=== PATIENT | female | born 1990 | race American Indian/Alaskan Native ===

== ENCOUNTER 2018-04-21 08:27 | Emergency (ER) | payer MEDICAID ==
[2018-04-21 08:33] VITALS: BP 156/98
[2018-04-21 09:33] LABS: Basophils # (Auto) 0.1 K/mm3 (0.0-0.1); Basophils % (Auto) 1.8 % (0.0-1.8); Eosinophils # (Auto) 0.2 K/mm3 (0.0-0.4); Hematocrit 42.1 % (30.3-42.9); Hemoglobin 14.7 gm/dl (10.1-14.3); Lymphocytes # (Auto) 1.1 K/mm3 (1.2-5.4); Lymphocytes % (Auto) 26.5 % (13.4-35.0); Mean Corpuscular HGB Conc 35 % (30-34); Mean Corpuscular Hemoglobin 33 pg (28-32); Mean Corpuscular Volume 94 fl (79-97); Monocytes # (Auto) 0.6 K/mm3 (0.0-0.8); Monocytes % (Auto) 14.2 % (0.0-7.3); Platelet Count 255 K/mm3 (140-440); Red Blood Count 4.49 M/mm3 (3.65-5.03); Red Cell Distribution Width 14.9 % (13.2-15.2)
--- NOTE | 2018-04-21 09:38 | Emergency Department Report ---
ED Female HPI - General Chief complaint: Vaginal Bleeding Stated complaint: VAGINAL BLEEDING Time Seen by Provider: 04/21/18 09:37 Source: patient Mode of arrival: Ambulatory Limitations: No Limitations - History of Present Illness Initial comments: Patient reports that she is having vaginal bleeding in the study 3 days ago. She says she had bilateral tubal ligation and she is not . Denies passing any clots. Denies any urinary frequency or urgency but reports that she feels irritated when she urinates and when she wiped she sees bright red blood and also some spots of blood in the toilet. Bilateral back pain and pelvic pain is 4/10 and crampy. No medication taken. No alleviating or exacerbating factors. Denies any fever or chills. Denies any nausea or vomiting. MD Complaint: vaginal bleeding, other Onset/Timin -: days(s) Radiation: suprapubic, L flank, R flank Severity: mild Severity scale (0 -10): 4 Quality: sharp Consistency: intermittent Improves with: none Worsens with: none Are you Now?: No Last Menstrual Period: 04/03/18 EDC: 01/08/19 Associated Symptoms: vaginal bleeding, abdominal pain, dysuria, hematuria, other (back pain). denies: vaginal discharge, nausea/vomiting, fever/chills, headaches, loss of appetite, rash, seizure, shortness of breath, syncope, weakness - Related Data Sexually active: Yes Previous Rx's Medication Instructions Recorded Last Taken Type Ibuprofen [Motrin] 800 mg PO Q8HR PRN #20 tablet 01/08/16 Unknown Rx Bisacodyl [Dulcolax] 10 mg PO DAILY 1 Days #2 tab 04/21/18 Unknown Rx Ciprofloxacin HCl [Ciprofloxacin 500 mg PO Q12H 7 Days #14 tab 04/21/18 Unknown Rx TAB] Ibuprofen [Motrin 600 MG tab] 600 mg PO Q8H PRN #15 tablet 04/21/18 Unknown Rx Magnesium Citrate [Citrate of 300 ml PO ONCE 1 Days #1 bottle 04/21/18 Unknown Rx Magnesia] Sodium Phosphate,[place]-Dibasic 118 ml RC ONCE 1 Days #1 enema 04/21/18 Unknown Rx [Fleet Enema] Allergies Allergy/AdvReac Type Severity Reaction Status Date / Time Penicillins Allergy Hives Verified 04/21/18 08:29 ED Review of Systems ROS: Stated complaint: VAGINAL BLEEDING Other details as noted in HPI Constitutional: denies: chills, fever ENT: ear pain Respiratory: denies: cough, shortness of breath, SOB with exertion, SOB at rest , stridor, wheezing Cardiovascular: denies: chest pain, palpitations, dyspnea on exertion, edema, syncope, paroxysmal nocturnal dyspnea Endocrine: no symptoms reported Gastrointestinal: abdominal pain. denies: nausea, vomiting, diarrhea, constipation, hematemesis, melena, hematochezia Genitourinary: dysuria, hematuria, abnormal menses. denies: urgency, frequency , discharge, dyspareunia Musculoskeletal: back pain. denies: joint swelling, arthralgia, myalgia Skin: denies: rash, lesions Neurological: denies: headache, weakness ED Past Medical Hx - Past Medical History Previous Medical History?: Yes Hx Asthma: Yes - Surgical History Past Surgical History?: Yes Additional Surgical History: x3. D & C - Family History Family history: hypertension - Social History Smoking Status: Current Every Day Smoker Substance Use Type: None - Medications Home Medications: Home Medications Medication Instructions Recorded Confirmed Last Taken Type Ibuprofen [Motrin] 800 mg PO Q8HR PRN #20 tablet 01/08/16 Unknown Rx Bisacodyl [Dulcolax] 10 mg PO DAILY 1 Days #2 tab 04/21/18 Unknown Rx Ciprofloxacin HCl [Ciprofloxacin 500 mg PO Q12H 7 Days #14 tab 04/21/18 Unknown Rx TAB] Ibuprofen [Motrin 600 MG tab] 600 mg PO Q8H PRN #15 tablet 04/21/18 Unknown Rx Magnesium Citrate [Citrate of 300 ml PO ONCE 1 Days #1 bottle 04/21/18 Unknown Rx Magnesia] Sodium Phosphate,[place]-Dibasic 118 ml RC ONCE 1 Days #1 enema 04/21/18 Unknown Rx [Fleet Enema] ED Physical Exam - General Limitations: No Limitations General appearance: alert, in no apparent distress - Head Head exam: Present: atraumatic, normocephalic, normal inspection - Eye Eye exam: Present: normal appearance, PERRL, EOMI Pupils: Present: normal accommodation - ENT ENT exam: Present: normal exam, normal orophraynx, mucous membranes moist - Neck Neck exam: Present: normal inspection, full ROM. Absent: tenderness, lymphadenopathy - Respiratory Respiratory exam: Present: normal lung sounds bilaterally. Absent: respiratory distress, chest wall tenderness - Cardiovascular Cardiovascular Exam: Present: normal rhythm, tachycardia, normal heart sounds. Absent: systolic murmur, diastolic murmur - GI/Abdominal GI/Abdominal exam: Present: soft, normal bowel sounds. Absent: distended, tenderness, guarding, rebound, rigid, organomegaly, mass, bruit, pulsatile mass , hernia - Extremities Exam Extremities exam: Present: normal inspection, full ROM, normal capillary refill , other (No cce. + 2 pulses in all extremities, no neurovascular compromise). Absent: tenderness, pedal edema, joint swelling, calf tenderness - Back Exam Back exam: Present: normal inspection, other (plates without any difficulties). Absent: full ROM, tenderness, CVA tenderness (R), CVA tenderness (L), muscle spasm, paraspinal tenderness, vertebral tenderness, rash noted - Neurological Exam Neurological exam: Present: alert, oriented X3, normal gait - Psychiatric Psychiatric exam: Present: normal affect, normal mood - Skin Skin exam: Present: warm, dry, intact, normal color. Absent: rash ED Course Vital Signs 04/21/18 04/21/18 08:30 09:15 Temperature 98.5 F Pulse Rate 105 H Respiratory 18 18 Rate Blood Pressure 156/98 O2 Sat by Pulse 100 Oximetry - Reevaluation(s) Reevaluation #1: 04/21/18 10:42 Patient is stable throughout ED course. I discussed with her that her lab results were stable except she has white cells in her urine and moderate blood and since she is having bilateral flank pain and pelvic pain that I will go ahead and order a CT scan of the abdomen and pelvis without contrast to check to make sure she does not have kidney stones. She voiced understanding. test is negative. ED Medical Decision Making - Lab Data Result diagrams: 04/21/18 08:56 Lab Results 04/21/18 04/21/18 04/21/18 Range/Units 07:06 08:51 08:56 WBC 4.2 L (4.5-11.0) K/mm3 RBC 4.49 (3.65-5.03) M/mm3 Hgb 14.7 H (10.1-14.3) gm/dl Hct 42.1 (30.3-42.9) % MCV 94 (79-97) fl MCH 33 H (28-32) pg MCHC 35 H (30-34) % RDW 14.9 (13.2-15.2) % Plt Count 255 (140-440) K/mm3 Lymph % (Auto) 26.5 (13.4-35.0) % [place] % (Auto) 14.2 H (0.0-7.3) % Eos % (Auto) 4.0 (0.0-4.3) % Baso % (Auto) 1.8 (0.0-1.8) % Lymph # 1.1 L (1.2-5.4) K/mm3 [place] # 0.6 (0.0-0.8) K/mm3 Eos # 0.2 (0.0-0.4) K/mm3 Baso # 0.1 (0.0-0.1) K/mm3 Seg Neutrophils % 53.5 (40.0-70.0) % Seg Neutrophils # 2.3 (1.8-7.7) K/mm3 HCG, Quant (0-4) mIU/mL Urine Color Yellow (Yellow) Urine Turbidity Clear (Clear) Urine pH 6.0 (5.0-7.0) Ur Specific [place] 1.016 (1.003-1.030) Urine Protein <15 mg/dl (Negative) mg/dL Urine Glucose (UA) Neg (Negative) mg/dL Urine Ketones Neg (Negative) mg/dL Urine Blood Mod (Negative) Urine Nitrite Neg (Negative) Urine Bilirubin Neg (Negative) Urine Urobilinogen < 2.0 (<2.0) mg/dL Ur Leukocyte Esterase Neg (Negative) Urine WBC (Auto) 10.0 H (0.0-6.0) /HPF Urine RBC (Auto) 6.0 (0.0-6.0) /HPF U Epithel Cells (Auto) 1.0 (0-13.0) /HPF Blood Type O POSITIVE Antibody Screen Negative 04/21/18 Range/Units 08:56 WBC (4.5-11.0) K/mm3 RBC (3.65-5.03) M/mm3 Hgb (10.1-14.3) gm/dl Hct (30.3-42.9) % MCV (79-97) fl MCH (28-32) pg MCHC (30-34) % RDW (13.2-15.2) % Plt Count (140-440) K/mm3 Lymph % (Auto) (13.4-35.0) % [place] % (Auto) (0.0-7.3) % Eos % (Auto) (0.0-4.3) % Baso % (Auto) (0.0-1.8) % Lymph # (1.2-5.4) K/mm3 [place] # (0.0-0.8) K/mm3 Eos # (0.0-0.4) K/mm3 Baso # (0.0-0.1) K/mm3 Seg Neutrophils % (40.0-70.0) % Seg Neutrophils # (1.8-7.7) K/mm3 HCG, Quant < 2 (0-4) mIU/mL Urine Color (Yellow) Urine Turbidity (Clear) Urine pH (5.0-7.0) Ur Specific [place] (1.003-1.030) Urine Protein (Negative) mg/dL Urine Glucose (UA) (Negative) mg/dL Urine Ketones (Negative) mg/dL Urine Blood (Negative) Urine Nitrite (Negative) Urine Bilirubin (Negative) Urine Urobilinogen (<2.0) mg/dL Ur Leukocyte Esterase (Negative) Urine WBC (Auto) (0.0-6.0) /HPF Urine RBC (Auto) (0.0-6.0) /HPF U Epithel Cells (Auto) (0-13.0) /HPF Blood Type Antibody Screen Urine culture sent - Radiology Data Radiology results: report reviewed CT scan of the abdomen and pelvis without contrast done and dictated by radiologist. Report reviewed by myself. See report results below. Patient: EVE BARCENAS MR#: [id number] : 1990 Acct:[id number] Age/Sex: 27 / F ADM Date: 04/21/18 Loc: ED Attending Dr: Ordering Physician: KYLAH SIMS Date of Service: 04/21/18 Procedure(s): CT abdomen pelvis wo con Accession Number(s): [id number] cc: KYLAH SIMS FINAL REPORT EXAM: CT ABDOMEN PELVIS WO CON HISTORY: hematuria, flank pain TECHNIQUE: Axial images were performed from the lung bases to the pubic symphysis. Multiplanar reformats are performed on the acquisition scanner. Comparison: None FINDINGS: Right lower lobe scar. Unremarkable unenhanced liver, spleen, pancreas, gallbladder, bilateral adrenal glands. There are no renal stones. There is no hydronephrosis. Urinary bladder is moderately distended. Tracing the ureters in the retroperitoneum, no stones are identified. There are bilateral tubal interruption clips. Urinary bladder is moderately distended. Normally anteverted uterus with prominent bilateral age-appropriate adnexa. Moderate fecal retention. Normal appearance of the appendix. Nonobstructive bowel pattern. Multiple small mesenteric arcade, retroperitoneal, and inguinal lymph nodes. There are also small lymph nodes in the mesenteric root and portal region as well as along the ventral pancreas. IMPRESSION: No stones identified. No etiology for hematuria identified. No hydronephrosis. Multiple small lymph nodes throughout the mesenteric root and along sachi chains in the retroperitoneum. Recommend correlation with labs and possibly repeat exam with IV contrast. Moderate stool ball in the rectum. Transcribed By: MP Dictated By: DHIRAJ ENGLISH Electronically Authenticated By: DHIRAJ ENGLISH Signed Date/Time: 04/21/181120 DD/ 20 TD/TT: 04/21/18 112 - Medical Decision Making This is a 27-year-old female here reports that she is having and vaginal bleeding when she wipes after urinating and also she saw some blood in the toilet and this was noted last 3 days. She says she had her period that started on the 14 and that it started about 3 days ago. Patient reports that she is having lower back pain with some pelvic pain that comes and goes. She has bilateral tubal ligation. She does not have any fever, nausea or vomiting. I saw and examined patient and her abdominal exam is essentially normal, back exam is normal, patient's CBC with normal values, urinalysis with positive white count and moderate provides but no bacteria or or leukocyte esterase seen. She had CT scan of the abdomen and pelvis without contrast due to moderate blood in her urine. This was dictated by radiologist and myself. CT scan shows moderate stool in her colon with stool in her rectal area, distended bladder and multiple areas of enlarged lymph nodes. I discussed CT findings with patient and also gave her copy. She says she had a Pap smear 1 month ago and it was normal. I thought I refer her back to her primary care which she does have one and I will refer her to my [facility] for follow-up visit. Patient with mesenteric adenitis-referral to gastroenterology and [facility] Asymptomatic pyuria with hematuria-A she will be placed on Cipro which will cover adenitis and pyuria. Positive + urine and moderate blood. Urine culture sent Constipation-patient will be placed on enema and magnesium citrate and I encouraged her to eat food that fine fiber and drink plenty of water. I will also give her Dulcolax tablets 1 day. Lower back pain-better with Motrin 800 mg 1 dose and will discharge home and Motrin Pelvic pain-soft. Patient educated on diets that includes fiber, increase in fluids in her diet, medication, lab results and CT scan results. Referral to [facility] and field artillery cannoneer in 3-5 days and she voiced understanding Back to her primary care physician in 3-5 days. Patient discharged home in stable condition, her vital signs are stable she is afebrile. Pain is better. Discharged home to follow-up with [facility], field artillery cannoneer and her primary care physician in 3-5 days and she voiced understanding. I discussed with her that if her symptoms return to return back to the emergency room and she voiced understanding. She was prescribed Dulcolax tablet 1, ciprofloxacin, Motrin, magnesium citrate and enema. - Differential Diagnosis bowel obstruction, appendicitis, renal calculi, UTI, adenitis, Critical care attestation.: If time is entered above; I have spent that time in minutes in the direct care of this critically ill patient, excluding procedure time. ED Disposition Clinical Impression: Pelvic pain, Pyuria, Mesenteric adenitis Constipation Qualifiers: Constipation type: unspecified constipation type Qualified Code(s): K59.00 - Constipation, unspecified Lower back pain Qualifiers: Chronicity: acute Back pain laterality: bilateral Sciatica presence: without sciatica Qualified Code(s): M54.5 - Low back pain Hematuria Qualifiers: Hematuria type: unspecified type Qualified Code(s): R31.9 - Hematuria, unspecified Disposition: TO HOME OR SELFCARE Is pt being admited?: No Does the pt Need Aspirin: No Condition: Stable Instructions: Constipation (ED), High Fiber Diet (ED), Urinary Tract Infection in Women (ED), Mesenteric Adenitis (ED), Back Pain (ED), Abdominal Pain (ED), Acute Hematuria (ED) Additional Instructions: Please follow up with [facility] and primary care in 3-5 days. Follow up with [facility] in 3-5 days If his symptoms return, please return to the emergency room CR[facility] your CT scan is showing that you have moderate constipation so the steak regime that I discussed with you Increase fluid and fiber in your diet. Prescriptions: Bisacodyl [Dulcolax] 10 mg PO DAILY 1 Days #2 tab Ciprofloxacin HCl [Ciprofloxacin TAB] 500 mg PO Q12H 7 Days #14 tab Ibuprofen [Motrin 600 MG tab] 600 mg PO Q8H PRN #15 tablet PRN Reason: Pain Magnesium Citrate [Citrate of Magnesia] 300 ml PO ONCE 1 Days #1 bottle Sodium Phosphate,[place]-Dibasic [Fleet Enema] 118 ml RC ONCE 1 Days #1 enema Referrals: PRIMARY CAREM[facility] [Primary Care Provider] - 3-5 Days [facility] [Provider Group] - 3-5 Days [facility] [Provider Group] - 3-5 Days Forms: Work/School Release Form(ED)
[2018-04-21 10:20] LABS: Bilirubin,Urine NEG (Negative); Blood,Urine MOD (Negative); Color,Urine Yellow (Yellow); Protein,Urine <15 mg/dL mg/dL (Negative); Urobilinogen,Urine < 2.0 mg/dL (<2.0)
[2018-04-21] MEDS ORDERED: NORCO 7.5/325 PO ONE (10:43)
--- NOTE | 2018-04-21 11:28 | Cat Scan Report ---
FINAL REPORT EXAM: CT ABDOMEN PELVIS WO CON HISTORY: hematuria, flank pain TECHNIQUE: Axial images were performed from the lung bases to the pubic symphysis. Multiplanar reformats are performed on the acquisition scanner. Comparison: None FINDINGS: Right lower lobe scar. Unremarkable unenhanced liver, spleen, pancreas, gallbladder, bilateral adrenal glands. There are no renal stones. There is no hydronephrosis. Urinary bladder is moderately distended. Tracing the ureters in the retroperitoneum, no stones are identified. There are bilateral tubal interruption clips. Urinary bladder is moderately distended. Normally anteverted uterus with prominent bilateral age-appropriate adnexa. Moderate fecal retention. Normal appearance of the appendix. Nonobstructive bowel pattern. Multiple small mesenteric arcade, retroperitoneal, and inguinal lymph nodes. There are also small lymph nodes in the mesenteric root and portal region as well as along the ventral pancreas. IMPRESSION: No stones identified. No etiology for hematuria identified. No hydronephrosis. Multiple small lymph nodes throughout the mesenteric root and along sachi chains in the retroperitoneum. Recommend correlation with labs and possibly repeat exam with IV contrast. Moderate stool ball in the rectum.
== END 2018-04-21 13:39 | disposition home or self-care (01) ==
LOC: ED 08:27
DX: I88.0 Nonspecific mesenteric lymphadenitis (principal); K59.00 Constipation, unspecified; N39.0 Urinary tract infection, site not specified; R31.9 Hematuria, unspecified; J45.909 Unspecified asthma, uncomplicated; F17.200 Nicotine dependence, unspecified, uncomplicated; Z88.0 Allergy status to penicillin
CPT/HCPCS: 36415; 74176; 81001; 84702; 85025; 86850; 86900; 86901; 99284

== ENCOUNTER 2018-05-29 22:17 | Emergency (ER) | payer MEDICAID ==
[2018-05-29] MEDS ORDERED: PROVENTIL IH ONE ×2 (22:35→23:10)
[2018-05-29 22:57] VITALS: BP 147/104
[2018-05-29 23:17] LABS: Hematocrit 41.2 % (30.3-42.9); Hemoglobin 14.3 gm/dl (10.1-14.3); Mean Corpuscular HGB Conc 35 % (30-34); Mean Corpuscular Hemoglobin 33 pg (28-32); Mean Corpuscular Volume 94 fl (79-97); Platelet Count 363 K/mm3 (140-440); Red Blood Count 4.41 M/mm3 (3.65-5.03); Red Cell Distribution Width 13.8 % (13.2-15.2)
[2018-05-29 23:32] LABS: BUN/Creatinine Ratio 9; Blood Urea Nitrogen 6 mg/dL (7-17); Calcium 8.8 mg/dL (8.4-10.2); Hemolysis Index 8
--- NOTE | 2018-05-30 00:40 | XRay Report ---
FINAL REPORT EXAM: XR CHEST ROUTINE 2V HISTORY: cough and AUDRA COMPARISON: CT of the chest from December 2015. FINDINGS:: Frontal and lateral views of the chest obtained. Cardiac silhouette is within normal limits. No focal consolidation or effusion. No pneumothorax. Visualized bony thorax is grossly intact. IMPRESSION:: No acute findings.
[2018-05-30 05:11] LABS: Band Neutrophils # (Manual) 0.1 K/mm3; Basophils % (Manual) 0 % (0.0-1.8); Eosinophils % (Manual) 0 % (0.0-4.3); Myelocytes # (Manual) 0.2 K/mm3; Platelet Estimate Consistent w Auto; Total Cells Counted 100
== END 2018-05-30 00:54 | disposition left against medical advice (07) ==
LOC: ED 22:17
DX: R06.00 Dyspnea, unspecified (principal); Z53.21 Procedure and treatment not carried out due to patient leaving prior to being seen by health care provider
CPT/HCPCS: 36415; 71046; 80048; 84703; 85007; 85025

== ENCOUNTER 2018-06-06 16:45 | Emergency (ER) | payer MEDICAID ==
[2018-06-06 18:20] LABS: Basophils # (Auto) 0.1 K/mm3 (0.0-0.1); Basophils % (Auto) 0.7 % (0.0-1.8); Eosinophils # (Auto) 0.1 K/mm3 (0.0-0.4); Eosinophils % (Auto) 0.5 % (0.0-4.3); Hematocrit 40.7 % (30.3-42.9); Lymphocytes # (Auto) 1.4 K/mm3 (1.2-5.4); Lymphocytes % (Auto) 13.6 % (13.4-35.0); Mean Corpuscular HGB Conc 34 % (30-34); Mean Corpuscular Hemoglobin 32 pg (28-32); Mean Corpuscular Volume 93 fl (79-97); Monocytes # (Auto) 1.2 K/mm3 (0.0-0.8); Monocytes % (Auto) 11.1 % (0.0-7.3); Platelet Count 347 K/mm3 (140-440); Red Blood Count 4.39 M/mm3 (3.65-5.03); Red Cell Distribution Width 13.9 % (13.2-15.2)
--- NOTE | 2018-06-06 18:21 | Emergency Department Report ---
ED Chest Pain HPI - General Chief Complaint: Chest Pain Stated Complaint: CHEST PAIN Time Seen by Provider: 06/06/18 18:09 Source: patient Mode of arrival: Stretcher Limitations: No Limitations - History of Present Illness Initial Comments: 27-year-old female reports to the ED with chest pain, onset 4 hours ago while laying in bed. Patient reports pain is substernal, constant. Denies shortness of breath, nausea, vomiting, diaphoresis. Patient denies leg pain and swelling. She reports cough and nasal congestion. Patient was given aspirin and sublingual nitroglycerin by EMS. Reports relief of her pain. Denies family history of heart disease. Patient reports tobacco and marijuana use. Denies alcohol use. PCP: Family Medicine dane Terrazas MD Complaint: chest pain -: hour(s) (4) Onset: during rest Pain Location: substernal Pain Radiation: none Severity: moderate Severity scale (0 -10): 5 Quality: pressure Consistency: constant Improves With: nitroglycerin Worsens With: nothing Context: recent illness (URI) re: denies: nausea, vomting, diaphoresis, dyspnea Other Symptoms: cough, other (reports dizziness). denies: fever, leg swelling - Related Data Home Medications Medication Instructions Recorded Confirmed Last Taken Prednisone 10 mg PO 05/29/18 Unknown Zithromax Z-NEY 250 mg PO DAILY 05/29/18 05/29/18 Unknown Allergies Allergy/AdvReac Type Severity Reaction Status Date / Time Penicillins Allergy Hives Verified 04/21/18 08:29 Heart Score - HEART Score History: Slightly suspicious EKG: Non-specific Age: < 45 Risk factors: 1-2 risk factors Troponin: < normal limit HEART Score: 2 - Critical Actions Critical Actions: 0-3 pts:0.9-1.7%risk of adverse cardiac event.Candidate for discharge ED Review of Systems ROS: Stated complaint: CHEST PAIN Other details as noted in HPI Comment: All other systems reviewed and negative Constitutional: denies: fever ENT: congestion Respiratory: cough Cardiovascular: chest pain. denies: edema Gastrointestinal: denies: nausea, vomiting Musculoskeletal: other (denies leg pain/ swelling) Neurological: other (reports dizziness) ED Past Medical Hx - Past Medical History Hx Asthma: Yes - Surgical History Additional Surgical History: x3. D & C - Social History Smoking Status: Current Every Day Smoker Substance Use Type: Alcohol, Marijuana - Medications Home Medications: Home Medications Medication Instructions Recorded Confirmed Last Taken Type Prednisone 10 mg PO 05/29/18 Unknown History Zithromax Z-NEY 250 mg PO DAILY 05/29/18 05/29/18 Unknown History ED Physical Exam - General Limitations: No Limitations General appearance: alert, in no apparent distress - Head Head exam: Present: atraumatic, normocephalic - Eye Eye exam: Present: normal appearance - ENT ENT exam: Present: mucous membranes moist - Neck Neck exam: Present: normal inspection - Respiratory Respiratory exam: Present: normal lung sounds bilaterally. Absent: respiratory distress - Cardiovascular Cardiovascular Exam: Present: regular rate, normal rhythm, other (no chest wall tenderness) - GI/Abdominal GI/Abdominal exam: Present: soft. Absent: tenderness - Extremities Exam Extremities exam: Absent: pedal edema, calf tenderness - Neurological Exam Neurological exam: Present: alert, oriented X3 - Psychiatric Psychiatric exam: Present: normal affect, normal mood - Skin Skin exam: Present: warm, dry, intact, normal color. Absent: rash ED Course Vital Signs 06/06/18 06/06/18 06/06/18 17:22 17:30 17:32 Temperature 99.2 F Pulse Rate 110 H 105 H 97 H Respiratory 13 18 18 Rate Blood Pressure 148/94 148/94 O2 Sat by Pulse 100 100 Oximetry 06/06/18 06/06/18 06/06/18 17:43 17:45 18:00 Temperature Pulse Rate 102 H 96 H Respiratory 18 13 22 Rate Blood Pressure 143/102 143/102 O2 Sat by Pulse 100 99 100 Oximetry 06/06/18 06/06/18 06/06/18 18:15 18:30 18:45 Temperature Pulse Rate 87 85 87 Respiratory 14 20 22 Rate Blood Pressure 153/100 155/93 149/95 O2 Sat by Pulse 100 99 Oximetry 06/06/18 06/06/18 06/06/18 19:00 19:15 19:30 Temperature Pulse Rate 78 85 83 Respiratory 24 18 25 H Rate Blood Pressure 145/97 140/93 149/87 O2 Sat by Pulse 98 100 99 Oximetry - Reevaluation(s) Reevaluation #1: 06/06/18 19:50 Patient remains chest pain-free at this time. RYAN score - Ryan Score Age > 65: (0) No Aspirin use within the Past 7 Days: (0) No 3 or more CAD Risk Factors: (0) No 2 or more Angina events in past 24 hrs: (0) No Known CAD with more than 50% Stenosis: (0) No Elevated Cardiac Markers: (0) No ST Deviation Greater than 0.5mm: (0) No RYAN Score: 0 ED Medical Decision Making - Lab Data Result diagrams: 06/06/18 18:09 06/06/18 18:09 - EKG Data EKG shows normal: sinus rhythm, axis (nml), intervals (nml), QRS complexes (nml) , ST-T waves (T wave inv III and aVF) Rate: normal (rate 90) - EKG Data Interpretation: nonspecific ST-T wave kofi - Radiology Data Radiology results: pending, image reviewed interpreted by me: No acute findings - Medical Decision Making 27-year-old female with nonpleuritic chest pain, pressure like in character. Patient low risk for ACS given age, health status, and family history. Chest x- ray and EKG unremarkable, troponin normal. Patient remained chest pain-free at this time. Pt has primary care physician, instructed her to follow up as an outpatient. Patient given return precautions - Differential Diagnosis ACS, pneumonia, pulm edema, chest wall pain Critical care attestation.: If time is entered above; I have spent that time in minutes in the direct care of this critically ill patient, excluding procedure time. ED Disposition Clinical Impression: Chest pain Disposition: DC-01 TO HOME OR SELFCARE Is pt being admited?: No Condition: Stable Instructions: Chest Pain (ED)
[2018-06-06 18:39] LABS: BUN/Creatinine Ratio 13; Blood Urea Nitrogen 9 mg/dL (7-17); Calcium 8.9 mg/dL (8.4-10.2); Hemolysis Index 4
[2018-06-06 20:09] VITALS: BP 137/88
--- NOTE | 2018-06-06 20:14 | XRay Report ---
FINAL REPORT PROCEDURE: XR CHEST 1V AP TECHNIQUE: Chest radiograph anteroposterior view. CPT 70538 HISTORY: chest pain COMPARISON: 05/29/2018 FINDINGS: Heart: Normal. Mediastinum/Vessels: Normal. Lungs/Pleural space: No infiltrate, effusion, or pneumothorax. Bony thorax: No acute osseous abnormality. Life support devices: None. IMPRESSION: No radiographic evidence of acute cardiopulmonary abnormality.
== END 2018-06-06 20:21 | disposition home or self-care (01) ==
LOC: ED 16:45
DX: R07.81 Pleurodynia (principal); J45.909 Unspecified asthma, uncomplicated; F17.200 Nicotine dependence, unspecified, uncomplicated; F12.10 Cannabis abuse, uncomplicated
CPT/HCPCS: 36415; 71045; 80048; 84484; 85025; 93005; 93010

== ENCOUNTER 2018-06-13 03:49 | Emergency (ER) | payer MEDICAID ==
[2018-06-13 05:46] LABS: Hematocrit 42.4 % (30.3-42.9); Hemoglobin 14.6 gm/dl (10.1-14.3); Mean Corpuscular HGB Conc 34 % (30-34); Mean Corpuscular Hemoglobin 32 pg (28-32); Mean Corpuscular Volume 93 fl (79-97); Platelet Count 367 K/mm3 (140-440); Red Blood Count 4.57 M/mm3 (3.65-5.03)
[2018-06-13 06:11] LABS: Albumin 4.1 g/dL (3.9-5); BUN/Creatinine Ratio 13; Blood Urea Nitrogen 10 mg/dL (7-17); Calcium 9.4 mg/dL (8.4-10.2); Hemolysis Index 93
[2018-06-13 06:28] LABS: Alanine Aminotransferase 34 units/L (7-56)
[2018-06-13 06:51] LABS: Total Cells Counted 100
[2018-06-13 06:52] LABS: RBC Morphology Normal
[2018-06-13] MEDS ORDERED: LOPRESSOR PO ONE (06:54)
[2018-06-13] MEDS ORDERED: MORPHINE IM ONE (06:54)
[2018-06-13] MEDS ORDERED: ZOFRAN ODT PO ONE (06:54)
--- NOTE | 2018-06-13 07:02 | Emergency Department Report ---
ED General Adult HPI - General Chief complaint: High BP Stated complaint: HIGH BP Time Seen by Provider: 06/13/18 06:24 Source: patient Mode of arrival: Ambulatory Limitations: No Limitations - History of Present Illness Initial comments: 27-year-old female presents to the emergency department for evaluation of headache. Patient states headache is bifrontal and has been present intimately for 2 weeks. Patient states that several years ago she had a CT for headaches but doesn't remember what it showed. She was referred to a neurologist who she saw. She states that she felt somewhat dizzy with the headache. She did not complain of photophobia fever chills nor any neck stiffness. Headache is moderate and intermittent in nature. Patient states he's been having them since she was diagnosed with hypertension. She did not take her metoprolol yet today. This is the third emergency department visit this month. Patient had an evaluation for chest pain and was released. She states that sometimes she feels like electricity in her left lateral abdomen. She admits to being under a lot of stress because of her "illness" (hypertension). He states that she is beginning "hydrocortisone shots" for uveitis. She is not complaining of chest pain on this visit. -: Gradual, week(s) Location: head Radiation: non-radiation Quality: aching Consistency: intermittent Improves with: none Worsens with: none Associated Symptoms: denies other symptoms (except as above described) - Related Data Home Medications Medication Instructions Recorded Confirmed Last Taken Prednisone 10 mg PO 05/29/18 Unknown Zithromax Z-NEY 250 mg PO DAILY 05/29/18 05/29/18 Unknown Previous Rx's Medication Instructions Recorded Last Taken Type Butalb/Acetamin/Caff 50-325-40 1 tab PO Q6HR PRN #10 tab 06/13/18 Unknown Rx [Fioricet] Allergies Allergy/AdvReac Type Severity Reaction Status Date / Time Penicillins Allergy Hives Verified 04/21/18 08:29 ED Review of Systems ROS: Stated complaint: HIGH BP Other details as noted in HPI Constitutional: denies: chills, fever Eyes: denies: eye pain, eye discharge, vision change ENT: denies: ear pain, throat pain Respiratory: denies: cough, shortness of breath, wheezing Cardiovascular: denies: chest pain, palpitations Endocrine: no symptoms reported Gastrointestinal: denies: abdominal pain, nausea, diarrhea Genitourinary: denies: urgency, dysuria, discharge Musculoskeletal: denies: back pain, joint swelling, arthralgia Skin: denies: rash, lesions Neurological: headache. denies: weakness, paresthesias Psychiatric: anxiety (admitted increase stress). denies: depression Hematological/Lymphatic: denies: easy bleeding, easy bruising ED Past Medical Hx - Past Medical History Previous Medical History?: Yes Hx Hypertension: Yes Hx Asthma: Yes - Surgical History Past Surgical History?: Yes Additional Surgical History: x3. D & C - Social History Smoking Status: Current Every Day Smoker Substance Use Type: None - Medications Home Medications: Home Medications Medication Instructions Recorded Confirmed Last Taken Type Prednisone 10 mg PO 05/29/18 Unknown History Zithromax Z-NEY 250 mg PO DAILY 05/29/18 05/29/18 Unknown History Butalb/Acetamin/Caff 50-325-40 1 tab PO Q6HR PRN #10 tab 06/13/18 Unknown Rx [Fioricet] ED Physical Exam - General Limitations: No Limitations General appearance: alert, in no apparent distress - Head Head exam: Present: atraumatic, normocephalic - Eye Eye exam: Present: normal appearance, PERRL, EOMI. Absent: scleral icterus - ENT ENT exam: Present: mucous membranes moist - Neck Neck exam: Present: normal inspection. Absent: tenderness, meningismus - Respiratory Respiratory exam: Present: normal lung sounds bilaterally. Absent: respiratory distress - Cardiovascular Cardiovascular Exam: Present: regular rate, normal rhythm. Absent: systolic murmur, diastolic murmur, rubs, gallop - GI/Abdominal GI/Abdominal exam: Present: soft, normal bowel sounds. Absent: distended, tenderness, guarding, rebound, rigid - Extremities Exam Extremities exam: Present: normal inspection. Absent: calf tenderness - Back Exam Back exam: Present: normal inspection - Neurological Exam Neurological exam: Present: alert, oriented X3, CN II-XII intact. Absent: motor sensory deficit - Psychiatric Psychiatric exam: Present: normal affect, normal mood - Skin Skin exam: Present: warm, dry, intact, normal color. Absent: rash ED Course Vital Signs 06/13/18 06/13/18 06/13/18 04:27 06:30 06:46 Temperature 98.8 F Pulse Rate 83 85 75 Respiratory 18 17 16 Rate Blood Pressure 161/108 144/104 Blood Pressure [Left] O2 Sat by Pulse 98 100 100 Oximetry 06/13/18 06/13/18 06/13/18 07:00 07:05 07:10 Temperature Pulse Rate 70 70 70 Respiratory 20 13 Rate Blood Pressure 145/99 145/99 Blood Pressure 145/99 [Left] O2 Sat by Pulse 100 100 Oximetry 06/13/18 06/13/18 06/13/18 07:15 07:16 07:30 Temperature Pulse Rate 77 66 Respiratory 18 10 L 23 Rate Blood Pressure 145/99 149/102 Blood Pressure [Left] O2 Sat by Pulse 98 100 99 Oximetry 06/13/18 06/13/18 06/13/18 07:46 08:00 08:16 Temperature Pulse Rate 77 73 93 H Respiratory 15 20 Rate Blood Pressure 149/102 149/102 138/95 Blood Pressure [Left] O2 Sat by Pulse 100 100 Oximetry 06/13/18 06/13/18 06/13/18 08:46 09:00 09:30 Temperature Pulse Rate 63 67 63 Respiratory 14 17 23 Rate Blood Pressure 141/95 131/93 127/87 Blood Pressure [Left] O2 Sat by Pulse 98 98 97 Oximetry - Reevaluation(s) Reevaluation #1: Her pressure is now normotensive. Headache is now improved. CT of the head was normal. Patient feels ready for discharge. She is appropriate for outpatient management. 06/13/18 09:59 ED Medical Decision Making - Lab Data Result diagrams: 06/13/18 04:52 06/13/18 04:52 Laboratory Results - last 24 hr 06/13/18 06/13/18 04:52 04:52 WBC 5.7 RBC 4.57 Hgb 14.6 H Hct 42.4 MCV 93 MCH 32 MCHC 34 RDW 14.0 Plt Count 367 Add Manual Diff Complete Total Counted 100 Seg Neuts % (Manual) 58.0 Band Neutrophils % 0 Lymphocytes % (Manual) 29.0 Reactive Lymphs % (Man) 0 Monocytes % (Manual) 10.0 H Eosinophils % (Manual) 1.0 Basophils % (Manual) 2.0 H Metamyelocytes % 0 Myelocytes % 0 Promyelocytes % 0 Blast Cells % 0 Nucleated RBC % Not Reportable Seg Neutrophils # Man 3.3 Band Neutrophils # 0.0 Lymphocytes # (Manual) 1.7 Abs React Lymphs (Man) 0.0 Monocytes # (Manual) 0.6 Eosinophils # (Manual) 0.1 Basophils # (Manual) 0.1 Metamyelocytes # 0.0 Myelocytes # 0.0 Promyelocytes # 0.0 Blast Cells # 0.0 WBC Morphology Not Reportable Hypersegmented Neuts Not Reportable Hyposegmented Neuts Not Reportable Hypogranular Neuts Not Reportable Smudge Cells Not Reportable Toxic Granulation Not Reportable Toxic Vacuolation Not Reportable Dohle Bodies Not Reportable Pelger-Huet Anomaly Not Reportable Santiago Rods Not Reportable Platelet Estimate Appears normal Clumped Platelets Not Reportable Plt Clumps, EDTA Not Reportable Large Platelets Not Reportable Giant Platelets Not Reportable Platelet Satelliting Not Reportable Plt Morphology Comment Not Reportable RBC Morphology Normal Dimorphic RBCs Not Reportable Polychromasia Not Reportable Hypochromasia Not Reportable Poikilocytosis Not Reportable Anisocytosis Not Reportable Microcytosis Not Reportable Macrocytosis Not Reportable Spherocytes Not Reportable Pappenheimer Bodies Not Reportable Sickle Cells Not Reportable Target Cells Not Reportable Tear Drop Cells Not Reportable Ovalocytes Not Reportable Helmet Cells Not Reportable Cody-Acres Green Bodies Not Reportable [place] Rings Not Reportable [place] Cells Not Reportable Bite Cells Not Reportable Crenated Cell Not Reportable Elliptocytes Not Reportable Acanthocytes (Spur) Not Reportable Rouleaux Not Reportable Hemoglobin C Crystals Not Reportable Schistocytes Not Reportable Malaria parasites Not Reportable David Bodies Not Reportable Hem Pathologist Commnt No Sodium 138 Potassium 4.2 Chloride 100.3 Carbon Dioxide 26 Anion Gap 16 BUN 10 Creatinine 0.8 Estimated GFR > 60 BUN/Creatinine Ratio 13 Glucose 91 Calcium 9.4 Total Bilirubin 0.30 AST 25 ALT 34 Alkaline Phosphatase 57 Total Protein 6.8 Albumin 4.1 Albumin/Globulin Ratio 1.5 - Radiology Data Radiology results: report reviewed Critical care attestation.: If time is entered above; I have spent that time in minutes in the direct care of this critically ill patient, excluding procedure time. ED Disposition Clinical Impression: Essential hypertension Cephalalgia Qualifiers: Headache type: unspecified Headache chronicity pattern: episodic headache Intractability: not intractable Qualified Code(s): R51 - Headache Disposition: DC-01 TO HOME OR SELFCARE Is pt being admited?: No Does the pt Need Aspirin: No Condition: Stable Instructions: Hypertension (ED), Acute Headache (ED) Additional Instructions: Arterial blood pressure follow-up with her primary care provider. Return any acute change or problem. Prescriptions: Butalb/Acetamin/Caff 50-325-40 [Fioricet] 1 tab PO Q6HR PRN #10 tab PRN Reason: Headache Referrals: PRIMARY CARE, [Primary Care Provider] - 2-3 Days Time of Disposition: 10:01
[2018-06-13 07:51] LABS: Bilirubin,Urine NEG (Negative); Color,Urine Yellow (Yellow)
[2018-06-13 07:52] LABS: Blood,Urine NEG (Negative); Mucus,Urine FEW /HPF; Protein,Urine <15 mg/dL mg/dL (Negative); Urobilinogen,Urine < 2.0 mg/dL (<2.0)
[2018-06-13 08:11] LABS: HCG Qualitative,Urine Negative (Negative)
--- NOTE | 2018-06-13 09:01 | Cat Scan Report ---
CT HEAD WITHOUT CONTRAST: HISTORY: Headache. TECHNIQUE: Sequential 2.5mm CT images. COMPARISON: none. FINDINGS: Cerebral Parenchyma: Within normal limits. Cerebellum: Within normal limits. Brainstem: Within normal limits. Ventricles: Normal. Sella: Normal. Extra-axial spaces: Normal. Basal Cisterns: Normal. Intracranial Hemorrhage: None. Midline Shift: None. Calvarium: Normal. Sinuses: Normal. Mastoid Air Cells: Normal. Visualized Orbits: Normal. IMPRESSION: Cranial CT scan within normal limits.
[2018-06-13 10:08] VITALS: BP 120/85
== END 2018-06-13 10:16 | disposition home or self-care (01) ==
LOC: ED 03:49
DX: I10 Essential (primary) hypertension (principal); J45.909 Unspecified asthma, uncomplicated; F17.200 Nicotine dependence, unspecified, uncomplicated; Z88.0 Allergy status to penicillin
CPT/HCPCS: 36415; 70450; 80053; 81001; 81025; 85007; 85025; 96372; 99284; J2270; Q0162

== ENCOUNTER 2018-06-26 22:41 | Emergency (ER) | payer MEDICAID ==
[2018-06-27 00:08] VITALS: BP 143/99
[2018-06-27] MEDS ORDERED: MOTRIN PO ONE (02:45)
--- NOTE | 2018-06-27 02:47 | Emergency Department Report ---
ED Extremity Problem HPI - General Chief complaint: Extremity Injury, Upper Stated complaint: LEFT ARM SWOLLEN Time Seen by Provider: 06/27/18 02:42 Source: patient Mode of arrival: Ambulatory Limitations: No Limitations - History of Present Illness Initial comments: 27-year-old -[place] female comes in complaining of left arm swelling. Patient reports that she was discharged from [facility] approximate 4 AM on Monday. Patient reports that she was being seen there for cardiac issues. Patient reports that she's been dealing with rapid pulse for couple weeks. Patient reports that she had blood work and IV placed in the left antecubital area and now she is having swelling. Patient reports no pain. Patient does admitting to smoking cigarettes. She also complains of right lower leg sharp pain that is constant. Patient reports she has not taken anything for the pain. She does admit that she works at [employer] and is competent on her feet. MD Complaint: extremity pain (constant right lower leg sharp pain.), extremity swelling Location: left (arm), right (lower leg) History of Same: No -: Yes myalgia Radiation: none Severity scale (0 -10): 8 Quality: sharp Consistency: constant Associated Symptoms: denies other symptoms - Related Data Home Medications Medication Instructions Recorded Confirmed Last Taken Prednisone 10 mg PO 05/29/18 Unknown Zithromax Z-NEY 250 mg PO DAILY 05/29/18 05/29/18 Unknown Previous Rx's Medication Instructions Recorded Last Taken Type Butalb/Acetamin/Caff 50-325-40 1 tab PO Q6HR PRN #10 tab 06/13/18 Unknown Rx [Fioricet] Ibuprofen [Motrin 600 MG tab] 600 mg PO Q8H #15 tablet 06/27/18 Unknown Rx Allergies Allergy/AdvReac Type Severity Reaction Status Date / Time Penicillins Allergy Hives Verified 04/21/18 08:29 ED Review of Systems ROS: Stated complaint: LEFT ARM SWOLLEN Other details as noted in HPI Comment: All other systems reviewed and negative Musculoskeletal: joint swelling (left arm near the antecubital), arthralgia ( right lower leg) ED Past Medical Hx - Past Medical History Hx Hypertension: Yes Hx Asthma: Yes - Surgical History Additional Surgical History: x3. D & C - Social History Smoking Status: Current Every Day Smoker Substance Use Type: None - Medications Home Medications: Home Medications Medication Instructions Recorded Confirmed Last Taken Type Prednisone 10 mg PO 05/29/18 Unknown History Zithromax Z-NEY 250 mg PO DAILY 05/29/18 05/29/18 Unknown History Butalb/Acetamin/Caff 50-325-40 1 tab PO Q6HR PRN #10 tab 06/13/18 Unknown Rx [Fioricet] Ibuprofen [Motrin 600 MG tab] 600 mg PO Q8H #15 tablet 06/27/18 Unknown Rx ED Physical Exam - General Limitations: No Limitations General appearance: alert, in no apparent distress - Head Head exam: Present: atraumatic, normocephalic - Eye Eye exam: Present: EOMI - ENT ENT exam: Present: mucous membranes moist - Respiratory Respiratory exam: Present: normal lung sounds bilaterally. Absent: respiratory distress, wheezes - Cardiovascular Cardiovascular Exam: Present: tachycardia - Expanded Upper Extremity Exam Right Shoulder Exam: Present: swelling Upper Arm exam: Present: normal inspection. Absent: tenderness Elbow exam: Present: full ROM, swelling. Absent: tenderness Forearm Wrist exam: Present: full ROM, swelling. Absent: tenderness Hand Wrist exam: Present: full ROM. Absent: tenderness, swelling Neuro motor exam: Present: thumb opposition intact, thumb IP flexion intact, thumb adduction intact, fingers 2-5 abduction intact Vascular: Present: normal capillary refill. Absent: vascular compromise - Expanded Lower Extremity Exam Right Hip exam: Present: full ROM Upper Leg exam: Present: normal inspection, full ROM Knee exam: Present: normal inspection, full ROM. Absent: tenderness Lower Leg exam: Present: normal inspection, full ROM. Absent: tenderness Ankle exam: Present: normal inspection, full ROM. Absent: tenderness Neuro vascular tendon exam: Present: no vascular compromise - Neurological Exam Neurological exam: Present: alert, oriented X3 - Psychiatric Psychiatric exam: Present: normal affect, normal mood - Skin Skin exam: Present: warm, dry, intact, normal color. Absent: rash ED Course Vital Signs 06/27/18 00:00 Temperature 98.5 F Pulse Rate 104 H Respiratory 16 Rate Blood Pressure 143/99 [Left] O2 Sat by Pulse 98 Oximetry ED Medical Decision Making - Medical Decision Making Patient has been evaluated by this provider in fast track. Ibuprofen ordered for pain management of right lower leg Discussed the patient that less arm swelling without pain can be secondary very to IV fluids. Discussed the patient to apply heat and massage the area to help fluid reabsorbed then. Discussed with patient she can follow-up with her primary care provider for her right lower leg pain. Since patient is able to weight-bear and walk without difficulties. Discussed the patient that smoking cigarettes can also cause lower leg pain secondary to decreased oxygen to the nerve endings veins and arteries. Encourage patient to stop smoking as this will also help with her fast heart rate. Critical care attestation.: If time is entered above; I have spent that time in minutes in the direct care of this critically ill patient, excluding procedure time. ED Disposition Clinical Impression: Left arm swelling, Right leg pain Disposition: DC- TO HOME OR SELFCARE Is pt being admited?: No Does the pt Need Aspirin: No Condition: Stable Instructions: Arthralgia (ED), Lumbar Radiculopathy (ED) Additional Instructions: Please take pain medication as needed. Follow up with her primary care provider if symptoms persist or gets worse. Prescriptions: Ibuprofen [Motrin 600 MG tab] 600 mg PO Q8H #15 tablet Referrals: PRIMARY CAREMD [Primary Care Provider] - 3-5 Days [facility] [Provider Group] - 3-5 Days Forms: Work/School Release Form(ED)
== END 2018-06-27 03:41 | disposition home or self-care (01) ==
LOC: ED 22:41
DX: R22.32 Localized swelling, mass and lump, left upper limb (principal); M79.604 Pain in right leg; I10 Essential (primary) hypertension; J45.909 Unspecified asthma, uncomplicated; F17.200 Nicotine dependence, unspecified, uncomplicated; Z88.0 Allergy status to penicillin
CPT/HCPCS: 99282

== ENCOUNTER 2018-10-12 19:40 | Emergency (ER) | payer MEDICAID ==
--- NOTE | 2018-10-12 21:33 | Emergency Department Report ---
ED Chest Pain HPI - General Chief Complaint: Chest Pain Stated Complaint: CHEST PAIN Time Seen by Provider: 10/12/18 21:26 Source: patient Mode of arrival: Ambulatory Limitations: No Limitations - History of Present Illness Initial Comments: 28-year-old -[place] female with a past medical history of hypertension that does not take her metoprolol 25 mg twice a day comes in for complaining of midsternal chest pain dizziness and hypertension last tick medicine 2 months ago. Patient denies any shortness of breathing and no fever no chills. Patient denies any cough no wheezing or flulike symptoms. Patient reports that the chest pain is more like pressure that started today. She reports that she had this similar issue last week as well. She does smoke cigarettes. Pain Location: substernal Pain Radiation: none Severity: moderate Quality: pressure Consistency: constant Improves With: nothing Worsens With: nothing Treatments Prior to Arrival: none - Related Data On Oral Contraceptives: No Home Medications Medication Instructions Recorded Confirmed Last Taken Prednisone 10 mg PO 05/29/18 Unknown Zithromax Z-NEY 250 mg PO DAILY 05/29/18 05/29/18 Unknown Previous Rx's Medication Instructions Recorded Last Taken Type Butalb/Acetamin/Caff 50-325-40 1 tab PO Q6HR PRN #10 tab 06/13/18 Unknown Rx [Fioricet] Ibuprofen [Motrin 600 MG tab] 600 mg PO Q8H #15 tablet 06/27/18 Unknown Rx Allergies Allergy/AdvReac Type Severity Reaction Status Date / Time Penicillins Allergy Hives Verified 04/21/18 08:29 Heart Score - HEART Score History: Slightly suspicious EKG: Normal Age: < 45 Risk factors: No known risk factors Troponin: < normal limit HEART Score: 0 ED Review of Systems ROS: Stated complaint: CHEST PAIN Other details as noted in HPI Constitutional: denies: chills, fever Eyes: denies: eye pain, eye discharge, vision change ENT: denies: ear pain, throat pain Respiratory: denies: cough, shortness of breath, wheezing Cardiovascular: chest pain Endocrine: no symptoms reported Gastrointestinal: denies: abdominal pain, nausea, diarrhea Genitourinary: denies: urgency, dysuria, discharge Musculoskeletal: denies: back pain, joint swelling, arthralgia Skin: denies: rash, lesions ED Past Medical Hx - Past Medical History Previous Medical History?: Yes Hx Hypertension: Yes Hx Asthma: No - Surgical History Additional Surgical History: x3. D & C - Social History Smoking Status: Smoker, Current Status Unknown Substance Use Type: None, Alcohol - Medications Home Medications: Home Medications Medication Instructions Recorded Confirmed Last Taken Type Prednisone 10 mg PO 05/29/18 Unknown History Zithromax Z-NEY 250 mg PO DAILY 05/29/18 05/29/18 Unknown History Butalb/Acetamin/Caff 50-325-40 1 tab PO Q6HR PRN #10 tab 06/13/18 Unknown Rx [Fioricet] Ibuprofen [Motrin 600 MG tab] 600 mg PO Q8H #15 tablet 06/27/18 Unknown Rx ED Physical Exam - General Limitations: No Limitations General appearance: alert, in no apparent distress - Head Head exam: Present: atraumatic, normocephalic - Eye Eye exam: Present: normal appearance - ENT ENT exam: Present: mucous membranes moist - Neck Neck exam: Present: normal inspection - Respiratory Respiratory exam: Present: normal lung sounds bilaterally. Absent: respiratory distress, chest wall tenderness - Cardiovascular Cardiovascular Exam: Present: regular rate, normal rhythm. Absent: systolic murmur, diastolic murmur, rubs, gallop - GI/Abdominal GI/Abdominal exam: Present: soft, normal bowel sounds - Back Exam Back exam: Present: normal inspection - Neurological Exam Neurological exam: Present: alert, oriented X3 - Psychiatric Psychiatric exam: Present: normal affect, normal mood - Skin Skin exam: Present: warm, dry, intact, normal color. Absent: rash ED Course Vital Signs 10/12/18 10/12/18 10/12/18 19:53 22:32 23:58 Temperature 99 F Pulse Rate 100 H 87 Respiratory 16 18 18 Rate Blood Pressure 164/106 Blood Pressure 149/98 [Left] O2 Sat by Pulse 97 100 Oximetry RYAN score - Ryan Score Age > 65: (0) No Aspirin use within the Past 7 Days: (0) No 3 or more CAD Risk Factors: (0) No 2 or more Angina events in past 24 hrs: (0) No Known CAD with more than 50% Stenosis: (0) No Elevated Cardiac Markers: (0) No ST Deviation Greater than 0.5mm: (0) No RYAN Score: 0 ED Medical Decision Making - Lab Data Result diagrams: 10/12/18 21:53 01/18/19 21:53 - Radiology Data Radiology results: report reviewed FINDINGS: Heart: Normal. Mediastinum/Vessels: Normal. Lungs/Pleural space: Slight atelectasis bilateral lower lungs. No effusion or pneumothorax. Bony thorax: No acute osseous abnormality. Other: IMPRESSION: Mild bilateral lower lung atelectasis. No evident consolidation or effusion.. Transcribed By: [facility] Dictated By: FLORINDA WINTERS MD Electronically Authenticated By: FLORINDA WINTERS MD Signed Date/Time: 10/12/182322 DD/ 24 TD/TT: 10/12/182324 - Medical Decision Making Patient has been evaluated by this provider in fast track. Chest x-ray showed the patient has bilateral lower lung atelectasis. Incentive spirometry ordered patient was at 1500. 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 She needs to in freeze her fluid intake. Patient is to follow-up with her primary care provider in regards to her her management of her hypertension. Take Tylenol as needed for headaches. Critical care attestation.: If time is entered above; I have spent that time in minutes in the direct care of this critically ill patient, excluding procedure time. ED Disposition Clinical Impression: Atelectasis of both lungs Disposition: -01 TO HOME OR SELFCARE Is pt being admited?: No Does the pt Need Aspirin: No Condition: Stable Instructions: How to Stop Smoking (ED) Additional Instructions: Please discontinue using cigarettes or vapors. Please increase her water intake. Please follow-up with the system operation superintendent and your primary care provider to have you reevaluated for hypertension in abnormal chest x-ray. Referrals: IMELDA GTZ MD [Primary Care Provider] - 3-5 Days YUMIKO SANCHEZ MD [Staff Physician] - 3-5 Days Forms: Work/School Release Form(ED)
[2018-10-12 22:05] LABS: Hematocrit 41.3 % (30.3-42.9); Hemoglobin 13.9 gm/dl (10.1-14.3); Mean Corpuscular HGB Conc 34 % (30-34); Mean Corpuscular Volume 92 fl (79-97); Platelet Count 296 K/mm3 (140-440); Red Cell Distribution Width 13.9 % (13.2-15.2)
[2018-10-12 22:10] LABS: Basophils # (Auto) 0.1 K/mm3 (0.0-0.1); Basophils % (Auto) 1.3 % (0.0-1.8); Eosinophils # (Auto) 0.1 K/mm3 (0.0-0.4); Eosinophils % (Auto) 2.2 % (0.0-4.3); Lymphocytes # (Auto) 1.4 K/mm3 (1.2-5.4); Lymphocytes % (Auto) 25.8 % (13.4-35.0); Monocytes # (Auto) 0.7 K/mm3 (0.0-0.8); Monocytes % (Auto) 12.6 % (0.0-7.3)
[2018-10-12] MEDS ORDERED: TYLENOL PO ONE (22:23)
[2018-10-12 22:41] LABS: Alanine Aminotransferase 36 units/L (7-56); Albumin 4.3 g/dL (3.9-5); BUN/Creatinine Ratio 11; Blood Urea Nitrogen 9 mg/dL (7-17); Calcium 9.1 mg/dL (8.4-10.2); Hemolysis Index 7
[2018-10-12 23:21] LABS: Bilirubin,Urine NEG (Negative); Blood,Urine NEG (Negative); Color,Urine Yellow (Yellow); Protein,Urine <15 mg/dL mg/dL (Negative); Urobilinogen,Urine < 2.0 mg/dL (<2.0)
--- NOTE | 2018-10-12 23:23 | XRay Report ---
FINAL REPORT PROCEDURE: XR CHEST ROUTINE 2V TECHNIQUE: PA and lateral chest radiographs were obtained. CPT 91852 HISTORY: Chest Pain COMPARISON: 06/06/2018 FINDINGS: Heart: Normal. Mediastinum/Vessels: Normal. Lungs/Pleural space: Slight atelectasis bilateral lower lungs. No effusion or pneumothorax. Bony thorax: No acute osseous abnormality. Other: IMPRESSION: Mild bilateral lower lung atelectasis. No evident consolidation or effusion..
[2018-10-12 23:28] LABS: HCG Qualitative,Urine Negative (Negative); WBC,Urine < 1.0 /HPF (0.0-6.0)
[2018-10-13] VITALS: BP 149/98
== END 2018-10-13 00:14 | disposition home or self-care (01) ==
LOC: ED 19:40
DX: J98.11 Atelectasis (principal); I10 Essential (primary) hypertension; F17.200 Nicotine dependence, unspecified, uncomplicated; Z88.0 Allergy status to penicillin
CPT/HCPCS: 36415; 71046; 80053; 81001; 81025; 84484; 85025; 85379; 93005; 93010; 99284

== ENCOUNTER 2018-12-20 18:57 | Emergency (ER) | payer MEDICAID, OTHER ==
--- NOTE | 2018-12-20 19:28 | Emergency Department Report ---
Blank Doc - Documentation Documentation: This is a 28-year-old female that presents with dizziness and lightheadedness. Stated took her blood pressure and was elevated. This initial assessment/diagnostic orders/clinical plan/treatment(s) is/are subject to change based on patient's health status, clinical progression and re- assessment by fellow clinical providers in the ED. Further treatment and workup at subsequent clinical providers discretion. Patient/guardians urged not to elope from the ED as their condition may be serious if not clinically assessed and managed. Initial orders include: 1- Patient sent to [facility] for further evaluation and treatment 2- labs
[2018-12-20 19:30] VITALS: BP 140/99
[2018-12-20 20:06] LABS: Basophils # (Auto) 0.1 K/mm3 (0.0-0.1); Basophils % (Auto) 1.1 % (0.0-1.8); Eosinophils # (Auto) 0.2 K/mm3 (0.0-0.4); Eosinophils % (Auto) 2.4 % (0.0-4.3); Hematocrit 38.2 % (30.3-42.9); Hemoglobin 12.9 gm/dl (10.1-14.3); Lymphocytes # (Auto) 1.5 K/mm3 (1.2-5.4); Lymphocytes % (Auto) 22.2 % (13.4-35.0); Mean Corpuscular HGB Conc 34 % (30-34); Mean Corpuscular Volume 90 fl (79-97); Monocytes # (Auto) 0.8 K/mm3 (0.0-0.8); Monocytes % (Auto) 11.5 % (0.0-7.3); Platelet Count 372 K/mm3 (140-440); Red Blood Count 4.27 M/mm3 (3.65-5.03)
[2018-12-20 20:45] LABS: Alanine Aminotransferase 31 units/L (7-56); Albumin 4.1 g/dL (3.9-5); BUN/Creatinine Ratio 9; Blood Urea Nitrogen 7 mg/dL (7-17); Hemolysis Index 17
[2018-12-20] MEDS ORDERED: BENADRYL PO ONE (23:15)
[2018-12-20 23:26] LABS: Bacteria,Urine 1+ /HPF (Negative); Bilirubin,Urine NEG (Negative); Blood,Urine NEG (Negative); Color,Urine Amber (Yellow); Mucus,Urine 3+ /HPF; Protein,Urine <15 mg/dL mg/dL (Negative)
--- NOTE | 2018-12-21 00:26 | Emergency Department Report ---
ED Dizziness HPI - General Chief Complaint: Dizziness Stated Complaint: LIGHT HEADED/HBP/HEART BEAT FAST Time Seen by Provider: 12/20/18 19:27 Source: patient Mode of arrival: Ambulatory Limitations: No Limitations - History of Present Illness Initial Comments: this is a 28 y/o aaf with hx of htn controlled by diltiazem by mouth patient is non adherent with medicaton regimen complains of episode of dizziness today no syncope no cp no sob no n/v no back pain no palpitations symptoms were relieved by rest , symptoms were exacerbated by nothing Complaint: dizziness, lightheadedness Onset/Timin Timing: sudden onset Description: sense of movement History of Same: Yes History of Trauma: No Severity: mild (is done is) Improves With: rest Worsens With: nothing Associated Symptoms: denies: chest pain, confusion, fever/chills, shortness of breath, syncope, weakness - Related Data Home Medications Medication Instructions Recorded Confirmed Last Taken Prednisone 10 mg PO 05/29/18 Unknown Zithromax Z-NEY 250 mg PO DAILY 05/29/18 05/29/18 Unknown Previous Rx's Medication Instructions Recorded Last Taken Type Butalb/Acetamin/Caff 50-325-40 1 tab PO Q6HR PRN #10 tab 06/13/18 Unknown Rx [Fioricet] Ibuprofen [Motrin 600 MG tab] 600 mg PO Q8H #15 tablet 06/27/18 Unknown Rx Allergies Allergy/AdvReac Type Severity Reaction Status Date / Time Penicillins Allergy Hives Verified 04/21/18 08:29 ED Review of Systems ROS: Stated complaint: LIGHT HEADED/HBP/HEART BEAT FAST Other details as noted in HPI Constitutional: denies: chills, fever Eyes: denies: eye pain, eye discharge, vision change ENT: denies: ear pain, throat pain, dental pain, hearing loss, epistaxis, congestion Respiratory: denies: cough, shortness of breath, wheezing Cardiovascular: denies: chest pain, palpitations Endocrine: no symptoms reported Gastrointestinal: denies: abdominal pain, nausea, diarrhea Genitourinary: denies: urgency, dysuria, discharge Musculoskeletal: denies: back pain, joint swelling, arthralgia Skin: denies: rash, lesions Neurological: denies: headache, weakness, numbness, paresthesias, confusion, abnormal gait, vertigo Psychiatric: denies: anxiety, depression Hematological/Lymphatic: denies: easy bleeding, easy bruising ED Past Medical Hx - Past Medical History Hx Hypertension: Yes Hx Asthma: No - Surgical History Past Surgical History?: Yes Additional Surgical History: x3. D & C - Social History Smoking Status: Current Every Day Smoker Substance Use Type: None - Medications Home Medications: Home Medications Medication Instructions Recorded Confirmed Last Taken Type Prednisone 10 mg PO 05/29/18 Unknown History Zithromax Z-NEY 250 mg PO DAILY 05/29/18 05/29/18 Unknown History Butalb/Acetamin/Caff 50-325-40 1 tab PO Q6HR PRN #10 tab 06/13/18 Unknown Rx [Fioricet] Ibuprofen [Motrin 600 MG tab] 600 mg PO Q8H #15 tablet 06/27/18 Unknown Rx ED Physical Exam - General Limitations: No Limitations General appearance: alert, in no apparent distress - Head Head exam: Present: atraumatic, normocephalic - Eye Eye exam: Present: normal appearance, PERRL, EOMI Pupils: Present: normal accommodation - ENT ENT exam: Present: normal orophraynx, mucous membranes moist, TM's normal bilaterally, normal external ear exam - Neck Neck exam: Present: normal inspection, full ROM. Absent: lymphadenopathy, thyromegaly - Respiratory Respiratory exam: Present: normal lung sounds bilaterally. Absent: respiratory distress, wheezes, stridor, chest wall tenderness - Cardiovascular Cardiovascular Exam: Present: regular rate, normal rhythm, normal heart sounds. Absent: systolic murmur, diastolic murmur, rubs, gallop - GI/Abdominal GI/Abdominal exam: Present: soft, normal bowel sounds. Absent: tenderness, rebound, bruit, hernia - Rectal Rectal exam: Present: deferred - Extremities Exam Extremities exam: Present: normal inspection, full ROM, normal capillary refill. Absent: tenderness, pedal edema, joint swelling, calf tenderness - Back Exam Back exam: Present: normal inspection, full ROM. Absent: tenderness, CVA tenderness (R), CVA tenderness (L), muscle spasm, paraspinal tenderness, vertebral tenderness, rash noted - Neurological Exam Neurological exam: Present: alert, oriented X3, CN II-XII intact, normal gait, reflexes normal - Psychiatric Psychiatric exam: Present: normal affect, normal mood - Skin Skin exam: Present: warm, dry, intact, normal color. Absent: rash ED Course Vital Signs 12/20/18 19:27 Temperature 98.4 F Pulse Rate 110 H Respiratory 14 Rate Blood Pressure 140/99 O2 Sat by Pulse 100 Oximetry ED Medical Decision Making - Lab Data Result diagrams: 12/20/18 19:45 12/20/18 19:45 Labs 12/20/18 12/20/18 12/20/18 19:45 19:45 19:45 WBC 6.5 RBC 4.27 Hgb 12.9 Hct 38.2 MCV 90 MCH 30 MCHC 34 RDW 15.0 Plt Count 372 Lymph % (Auto) 22.2 Parker % (Auto) 11.5 H Eos % (Auto) 2.4 Baso % (Auto) 1.1 Lymph # 1.5 Parker # 0.8 Eos # 0.2 Baso # 0.1 Seg Neutrophils % 62.8 Seg Neutrophils # 4.1 Sodium 136 L Potassium 3.3 L Chloride 100.8 Carbon Dioxide 23 Anion Gap 16 BUN 7 Creatinine 0.8 Estimated GFR > 60 BUN/Creatinine Ratio 9 Glucose 101 H Calcium 9.0 Total Bilirubin 0.40 AST 33 ALT 31 Alkaline Phosphatase 56 Total Protein 6.9 Albumin 4.1 Albumin/Globulin Ratio 1.5 HCG, Qual Negative Urine Color Urine Turbidity Urine pH Ur Specific [place] Urine Protein Urine Glucose (UA) Urine Ketones Urine Blood Urine Nitrite Urine Bilirubin Urine Urobilinogen Ur Leukocyte Esterase Urine WBC (Auto) Urine RBC (Auto) U Epithel Cells (Auto) Urine Bacteria (Auto) Urine Mucus 12/20/18 Unknown WBC RBC Hgb Hct MCV MCH MCHC RDW Plt Count Lymph % (Auto) [place] % (Auto) Eos % (Auto) Baso % (Auto) Lymph # Parker # Eos # Baso # Seg Neutrophils % Seg Neutrophils # Sodium Potassium Chloride Carbon Dioxide Anion Gap BUN Creatinine Estimated GFR BUN/Creatinine Ratio Glucose Calcium Total Bilirubin AST ALT Alkaline Phosphatase Total Protein Albumin Albumin/Globulin Ratio HCG, Qual Urine Color [place] Urine Turbidity Clear Urine pH 5.0 Ur Specific [place] 1.032 H Urine Protein <15 mg/dl Urine Glucose (UA) Neg Urine Ketones Tr Urine Blood Neg Urine Nitrite Neg Urine Bilirubin Neg Urine Urobilinogen 2.0 Ur Leukocyte Esterase Neg Urine WBC (Auto) 1.0 Urine RBC (Auto) 2.0 U Epithel Cells (Auto) 2.0 Urine Bacteria (Auto) 1+ Urine Mucus 3+ - EKG Data EKG shows normal: sinus rhythm, axis, intervals, QRS complexes, ST-T waves Rate: tachycardia - EKG Data When compared to previous EKG there are: no significant change Interpretation: normal EKG (ekg interp by ed attending stach hr [address] elevation no ectopy ) - Medical Decision Making EKG was admitted to EKG of 10/12/2018 patient was nonadherent with her medications then patient vascularly she must take her diltiazem as directed prescribed daily without fail follow up with Dr. Xavier in 2 days returned to symptoms worsen patient is alert and oriented 3 at this time no dizziness no chest pain or shortness of breath no back pain no nausea vomiting patient will follow up with PCP in 2 days patient will return if symptoms worsen Critical care attestation.: If time is entered above; I have spent that time in minutes in the direct care of this critically ill patient, excluding procedure time. ED Disposition Clinical Impression: Dizziness HTN (hypertension) Qualifiers: Hypertension type: essential hypertension Qualified Code(s): I10 - Essential (primary) hypertension Disposition: -01 TO HOME OR SELFCARE Is pt being admited?: No Does the pt Need Aspirin: No Condition: Stable Instructions: Hypertension (ED) Referrals: JOLYNN SOLIS NP [Primary Care Provider] - 3-5 Days NAY XAVIER MD [Staff Physician] - 3-5 Days Forms: Work/School Release Form(ED) Time of Disposition: 00:35
== END 2018-12-21 00:40 | disposition home or self-care (01) ==
LOC: ED 18:57
DX: R42 Dizziness and giddiness (principal); I10 Essential (primary) hypertension; F17.200 Nicotine dependence, unspecified, uncomplicated; Z88.0 Allergy status to penicillin
CPT/HCPCS: 36415; 80053; 81001; 84703; 85025; 93005; 93010; 99283

== ENCOUNTER 2019-03-02 04:38 | Emergency (ER) | payer OTHER ==
--- NOTE | 2019-03-02 05:24 | XRay Report ---
PROCEDURE: XR CHEST 1V AP TECHNIQUE: Chest radiograph single view. HISTORY: Chest Pain COMPARISONS: 10/13/2018 . . FINDINGS: No mediastinal shift. Cardiac silhouette is not enlarged. No pneumothorax, effusion, or focal pulmona ry opacity identified. No acute skeletal findings. IMPRESSION: No acute pulmonary finding identified. This document is electronically signed by Tristan Salmeron MD., March 02 2019 05:21:26 AM ET
[2019-03-02 07:23] LABS: Hematocrit 40.7 % (30.3-42.9); Hemoglobin 13.6 gm/dl (10.1-14.3); Mean Corpuscular HGB Conc 34 % (30-34); Mean Corpuscular Volume 91 fl (79-97); Platelet Count 282 K/mm3 (140-440); Red Blood Count 4.46 M/mm3 (3.65-5.03); Red Cell Distribution Width 14.7 % (13.2-15.2)
[2019-03-02 07:32] LABS: INR 0.95 (0.87-1.13)
[2019-03-02 07:33] LABS: Partial Thromboplastin Time 26.4 Sec. (24.2-36.6)
[2019-03-02 07:55] LABS: Bacteria,Urine 4+ /HPF (Negative); Bilirubin,Urine NEG (Negative); Blood,Urine NEG (Negative); Color,Urine Yellow (Yellow); HCG Qualitative,Urine Negative (Negative); Protein,Urine <15 mg/dL mg/dL (Negative); Urobilinogen,Urine < 2.0 mg/dL (<2.0)
[2019-03-02 08:08] LABS: Amphetamine Screen,Urine PRESUMPTIVE NEGATIVE; Benzodiazepines Screen,Urine PRESUMPTIVE NEGATIVE; Cannabinoid Screen,Urine PRESUMPTIVE NEGATIVE; Cocaine Screen,Urine PRESUMPTIVE NEGATIVE; Methadone Screen,Urine PRESUMPTIVE NEGATIVE; Opiate Screen,Urine PRESUMPTIVE NEGATIVE
[2019-03-02 08:39] VITALS: BP 118/81
[2019-03-02 08:49] LABS: Creatine Kinase MB 1.1 ng/mL (0.0-4.0)
[2019-03-02 08:51] LABS: Alanine Aminotransferase 23 units/L (7-56); BUN/Creatinine Ratio 12; Blood Urea Nitrogen 11 mg/dL (7-17); Calcium 8.8 mg/dL (8.4-10.2); Hemolysis Index 2
[2019-03-02 08:52] LABS: Bilirubin,Direct < 0.2 mg/dL (0-0.2)
--- NOTE | 2019-03-02 09:35 | Emergency Department Report ---
ED Chest Pain HPI - General Chief Complaint: Chest Pain Stated Complaint: CP/SOB Time Seen by Provider: 03/02/19 06:22 Source: patient Mode of arrival: Ambulatory Limitations: No Limitations - History of Present Illness Initial Comments: 28-year-old female with recurrent chest pain. He states that she was doubtful asleep at 4 in the morning when she began to experience nonradiating and nonpleuritic midsternal chest pain. She's had no recent travel, no leg pain or swelling. He does not complain of cough or shortness of breath. She states that she does not know if she just got anxious or not. She presented here before twice for chest pain among other symptoms. She does not have a primary care provider. She has no family history of myocardial infarction or venous thromboembolism. MD Complaint: chest pain -: Gradual Onset: during rest Pain Location: substernal Pain Radiation: none Severity: moderate Severity scale (0 -10): 6 Quality: dull Consistency: now resolved Improves With: nothing Worsens With: nothing re: denies: nausea, vomting, diaphoresis, dyspnea, sense of impending doom Other Symptoms: denies: cough, fever, syncope, rash, acid taste in mouth, leg swelling, palpitations, burping Treatments Prior to Arrival: none Aspirin use within the Past 7 Days: (0) No - Related Data Home Medications Medication Instructions Recorded Confirmed Last Taken Prednisone 10 mg PO 05/29/18 Unknown Zithromax Z-NEY 250 mg PO DAILY 05/29/18 05/29/18 Unknown Previous Rx's Medication Instructions Recorded Last Taken Type Butalb/Acetamin/Caff 50-325-40 1 tab PO Q6HR PRN #10 tab 06/13/18 Unknown Rx [Fioricet] Ibuprofen [Motrin 600 MG tab] 600 mg PO Q8H #15 tablet 06/27/18 Unknown Rx Allergies Allergy/AdvReac Type Severity Reaction Status Date / Time Penicillins Allergy Hives Verified 04/21/18 08:29 Heart Score - HEART Score History: Slightly suspicious EKG: Normal Age: < 45 Risk factors: 1-2 risk factors Troponin: < normal limit HEART Score: 1 - Critical Actions Critical Actions: 0-3 pts:0.9-1.7%risk of adverse cardiac event.Candidate for discharge ED Review of Systems ROS: Stated complaint: CP/SOB Other details as noted in HPI Constitutional: denies: chills, fever Eyes: denies: eye pain, eye discharge, vision change ENT: denies: ear pain, throat pain Respiratory: denies: cough, shortness of breath, wheezing Cardiovascular: chest pain. denies: palpitations Endocrine: no symptoms reported Gastrointestinal: denies: abdominal pain, nausea, diarrhea Genitourinary: denies: urgency, dysuria, discharge Musculoskeletal: denies: back pain, joint swelling, arthralgia Skin: denies: rash, lesions Neurological: denies: headache, weakness, paresthesias Psychiatric: denies: anxiety, depression Hematological/Lymphatic: denies: easy bleeding, easy bruising ED Past Medical Hx - Past Medical History Previous Medical History?: No Hx Asthma: No - Surgical History Past Surgical History?: Yes Additional Surgical History: x3. D & C - Social History Smoking Status: Current Every Day Smoker Substance Use Type: Alcohol - Medications Home Medications: Home Medications Medication Instructions Recorded Confirmed Last Taken Type Prednisone 10 mg PO 05/29/18 Unknown History Zithromax Z-NEY 250 mg PO DAILY 05/29/18 05/29/18 Unknown History Butalb/Acetamin/Caff 50-325-40 1 tab PO Q6HR PRN #10 tab 06/13/18 Unknown Rx [Fioricet] Ibuprofen [Motrin 600 MG tab] 600 mg PO Q8H #15 tablet 06/27/18 Unknown Rx ED Physical Exam - General Limitations: No Limitations General appearance: alert, in no apparent distress - Head Head exam: Present: atraumatic, normocephalic - Eye Eye exam: Present: normal appearance. Absent: scleral icterus - ENT ENT exam: Present: mucous membranes moist - Neck Neck exam: Present: normal inspection - Respiratory Respiratory exam: Present: normal lung sounds bilaterally. Absent: respiratory distress - Cardiovascular Cardiovascular Exam: Present: regular rate, normal rhythm. Absent: systolic murmur, diastolic murmur, rubs, gallop - GI/Abdominal GI/Abdominal exam: Present: soft, normal bowel sounds. Absent: distended, tenderness, guarding, rebound - Extremities Exam Extremities exam: Present: normal inspection. Absent: pedal edema, joint swelling, calf tenderness - Back Exam Back exam: Present: normal inspection - Neurological Exam Neurological exam: Present: alert, oriented X3, CN II-XII intact. Absent: motor sensory deficit - Psychiatric Psychiatric exam: Present: normal affect, normal mood - Skin Skin exam: Present: warm, dry, intact, normal color. Absent: rash ED Course Vital Signs 03/02/19 03/02/19 03/02/19 04:44 06:27 06:29 Temperature 98.6 F Pulse Rate 125 H 87 Respiratory 18 17 16 Rate Blood Pressure 135/96 O2 Sat by Pulse 100 100 Oximetry 03/02/19 03/02/19 03/02/19 06:30 07:00 07:41 Temperature Pulse Rate 81 87 79 Respiratory 11 L 20 16 Rate Blood Pressure 130/90 123/86 123/86 O2 Sat by Pulse 100 Oximetry 03/02/19 03/02/19 08:00 08:30 Temperature Pulse Rate 83 81 Respiratory 17 11 L Rate Blood Pressure 119/78 118/81 O2 Sat by Pulse 100 Oximetry RYAN score - Ryan Score Age > 65: (0) No Aspirin use within the Past 7 Days: (0) No 3 or more CAD Risk Factors: (0) No 2 or more Angina events in past 24 hrs: (0) No Known CAD with more than 50% Stenosis: (0) No Elevated Cardiac Markers: (0) No ST Deviation Greater than 0.5mm: (0) No RYAN Score: 0 ED Medical Decision Making - Lab Data Result diagrams: 03/02/19 06:40 03/02/19 06:49 Laboratory Results - last 24 hr 03/02/19 03/02/19 03/02/19 06:40 06:49 06:50 WBC 5.7 RBC 4.46 Hgb 13.6 Hct 40.7 MCV 91 MCH 31 MCHC 34 RDW 14.7 Plt Count 282 [place] % (Auto) Ethnoarchaeology Professor PT 13.3 INR 0.95 APTT 26.4 D-Dimer 207.75 Sodium 136 L Potassium 3.9 Chloride 99.8 Carbon Dioxide 23 Anion Gap 17 BUN 11 Creatinine 0.9 Estimated GFR > 60 BUN/Creatinine Ratio 12 Glucose 101 H Calcium 8.8 Total Bilirubin 0.20 Direct Bilirubin < 0.2 AST 19 ALT 23 Alkaline Phosphatase 58 Total Creatine Kinase 71 CK-MB (CK-2) 1.1 CK-MB (CK-2) Rel Index 1.5 Troponin T < 0.010 NT-Pro-B Natriuret Pep 54.71 Total Protein 7.0 Albumin 4.0 Albumin/Globulin Ratio 1.3 Urine Color Urine Turbidity Urine pH Ur Specific [place] Urine Protein Urine Glucose (UA) Urine Ketones Urine Blood Urine Nitrite Urine Bilirubin Urine Urobilinogen Ur Leukocyte Esterase Urine WBC (Auto) Urine RBC (Auto) U Epithel Cells (Auto) Urine Bacteria (Auto) Urine HCG, Qual Urine Opiates Screen Urine Methadone Screen Ur Barbiturates Screen Ur Phencyclidine Scrn Ur Amphetamines Screen U Benzodiazepines Scrn Urine Cocaine Screen U Marijuana (THC) Screen Drugs of Abuse Note 03/02/19 03/02/19 07:43 07:44 WBC RBC Hgb Hct MCV MCH MCHC RDW Plt Count [place] % (Auto) PT INR APTT D-Dimer Sodium Potassium Chloride Carbon Dioxide Anion Gap BUN Creatinine Estimated GFR BUN/Creatinine Ratio Glucose Calcium Total Bilirubin Direct Bilirubin AST ALT Alkaline Phosphatase Total Creatine Kinase CK-MB (CK-2) CK-MB (CK-2) Rel Index Troponin T NT-Pro-B Natriuret Pep Total Protein Albumin Albumin/Globulin Ratio Urine Color Yellow Urine Turbidity Clear Urine pH 8.0 H Ur Specific [place] 1.015 Urine Protein <15 mg/dl Urine Glucose (UA) Neg Urine Ketones Neg Urine Blood Neg Urine Nitrite Neg Urine Bilirubin Neg Urine Urobilinogen < 2.0 Ur Leukocyte Esterase Neg Urine WBC (Auto) 1.0 Urine RBC (Auto) 2.0 U Epithel Cells (Auto) 2.0 Urine Bacteria (Auto) 4+ Urine HCG, Qual Negative Urine Opiates Screen Presumptive negative Urine Methadone Screen Presumptive negative Ur Barbiturates Screen Presumptive negative Ur Phencyclidine Scrn Presumptive negative Ur Amphetamines Screen Presumptive negative U Benzodiazepines Scrn Presumptive negative Urine Cocaine Screen Presumptive negative U Marijuana (THC) Screen Presumptive negative Drugs of Abuse Note Disclamer - EKG Data -: EKG Interpreted by Ms EKG shows normal: sinus rhythm, axis, intervals, QRS complexes, ST-T waves Rate: normal - EKG Data Interpretation: no acute changes, nonspecific ST-T wave kofi (mildly nonspeci fically) Critical care attestation.: If time is entered above; I have spent that time in minutes in the direct care of this critically ill patient, excluding procedure time. ED Disposition Clinical Impression: Chest pain, atypical Disposition: DC-01 TO HOME OR SELFCARE Is pt being admited?: No Does the pt Need Aspirin: No Condition: Stable Instructions: Chest Pain (ED) Additional Instructions: Return to the emergency department any acute change or worsening symptoms. [id number] medicines for pain such as Advil or Tylenol. Follow-up with private care clinic. Referrals: AIRAM EATON MD [Primary Care Provider] - 3-5 Days [facility] [Provider Group] - 3-5 Days Time of Disposition: 09:45
[2019-03-02] MEDS ORDERED: IBUPROFEN PO ONE ×2 (09:47→09:57)
[2019-03-02 10:57] LABS: Anisocytosis 1+; Basophils % (Manual) 0 % (0.0-1.8); Macrocytosis 1+; Ovalocytes Few; Total Cells Counted 100
[2019-03-02 10:58] LABS: Platelet Estimate Consistent w Auto
== END 2019-03-02 10:03 | disposition home or self-care (01) ==
LOC: ED 04:38
DX: R07.89 Other chest pain (principal); F17.200 Nicotine dependence, unspecified, uncomplicated; Z88.0 Allergy status to penicillin; Z79.899 Other long term (current) drug therapy
CPT/HCPCS: 36415; 71045; 80048; 80076; 80307; 81001; 81025; 82550; 82553; 83880; 84484; 85007; 85025; 85379; 85610; 85730; 93005; 93010; 99284

== ENCOUNTER 2019-03-20 22:47 | Emergency (ER) | payer OTHER ==
--- NOTE | 2019-03-21 01:37 | XRay Report ---
PROCEDURE: Chest. TECHNIQUE: PA and lateral chest radiographs were obtained. HISTORY: Chest pain. COMPARISONS: Chest 03/02/2019. FINDINGS: The heart and mediastinum appear normal. There is a thin curvilinear opacity in the right lung. This is probably in the right upper lobe, near the major fissure. This probably represents a parenchymal s car. A similar density was present on the previous study. The lungs are otherwise clear and well expa nded. There are no pleural effusions. The soft tissues and regional skeleton are unremarkable. IMPRESSION: No evidence of acute cardiopulmonary disease. This document is electronically signed by Tristan Pa MD., March 21 2019 01:35:26 AM ET
[2019-03-21 02:37] LABS: Basophils # (Auto) 0.1 K/mm3 (0.0-0.1); Basophils % (Auto) 1.2 % (0.0-1.8); Eosinophils # (Auto) 0.2 K/mm3 (0.0-0.4); Eosinophils % (Auto) 4.4 % (0.0-4.3); Hemoglobin 13.7 gm/dl (10.1-14.3); Lymphocytes # (Auto) 1.8 K/mm3 (1.2-5.4); Lymphocytes % (Auto) 35.1 % (13.4-35.0); Mean Corpuscular HGB Conc 34 % (30-34); Mean Corpuscular Volume 91 fl (79-97); Monocytes # (Auto) 0.7 K/mm3 (0.0-0.8); Platelet Count 358 K/mm3 (140-440); Red Cell Distribution Width 14.5 % (13.2-15.2)
[2019-03-21 02:57] LABS: BUN/Creatinine Ratio 8; Blood Urea Nitrogen 6 mg/dL (7-17); Calcium 9.1 mg/dL (8.4-10.2); Hemolysis Index 9
--- NOTE | 2019-03-21 03:25 | Emergency Department Report ---
ED Chest Pain HPI - General Chief Complaint: Chest Pain Stated Complaint: CHEST PAIN ANXIETY INSOMNIA Time Seen by Provider: 03/21/19 01:52 Source: patient Mode of arrival: Ambulatory Limitations: No Limitations - History of Present Illness Initial Comments: This is a 28-year-old female nontoxic, well nourished in appearance, no acute signs of distress presents to the ED with c/o of chest pain. Patient stated that she has anxiety and when she develops anextiy develops chest pain. Patient denies any radiation of pain. Patient describes pain as aching intermittently and worsened during anxiety. Patient denies any upper respiratory symptoms. Patient denies any shortness of breath, hemoptysis, fever, chills, nausea, vomiting, headache, stiff neck, numbness, tingling, abdominal pain. Denies depression, SI or HI. Patient denies pleuritic chest pain. Patient denies any recent travels or long car rides. Patient denies any recent surgeries or any sick contacts. Patient stated allergies to PCN with PMH of anxiety. MD Complaint: chest pain -: days(s) Pain Radiation: none Quality: aching Consistency: now resolved Improves With: nothing Worsens With: nothing re: denies: nausea, vomting, diaphoresis, dyspnea, sense of impending doom Other Symptoms: denies: cough, fever, syncope, rash, acid taste in mouth, leg swelling, palpitations, burping Treatments Prior to Arrival: none Aspirin use within the Past 7 Days: (0) No - Related Data On Oral Contraceptives: No Home Medications Medication Instructions Recorded Confirmed Last Taken Prednisone 10 mg PO 05/29/18 Unknown Zithromax Z-NEY 250 mg PO DAILY 05/29/18 05/29/18 Unknown Previous Rx's Medication Instructions Recorded Last Taken Type Butalb/Acetamin/Caff 50-325-40 1 tab PO Q6HR PRN #10 tab 06/13/18 Unknown Rx [Fioricet] Ibuprofen [Motrin 600 MG tab] 600 mg PO Q8H #15 tablet 06/27/18 Unknown Rx ALPRAZolam [Xanax TAB] 0.25 mg PO DAILY PRN #12 tablet 03/21/19 Unknown Rx Allergies Allergy/AdvReac Type Severity Reaction Status Date / Time Penicillins Allergy Hives Verified 04/21/18 08:29 Heart Score - HEART Score History: Slightly suspicious EKG: Normal Age: < 45 Risk factors: No known risk factors Troponin: < normal limit HEART Score: 0 ED Review of Systems ROS: Stated complaint: CHEST PAIN ANXIETY INSOMNIA Other details as noted in HPI Constitutional: denies: chills, fever Eyes: denies: eye pain, eye discharge, vision change ENT: denies: ear pain, throat pain Respiratory: denies: cough, shortness of breath, wheezing Cardiovascular: chest pain. denies: palpitations Endocrine: no symptoms reported Gastrointestinal: denies: abdominal pain, nausea, diarrhea Genitourinary: denies: urgency, dysuria, discharge Musculoskeletal: denies: back pain, joint swelling, arthralgia Skin: denies: rash, lesions Neurological: denies: headache, weakness, paresthesias Psychiatric: anxiety. denies: depression Hematological/Lymphatic: denies: easy bleeding, easy bruising ED Past Medical Hx - Past Medical History Previous Medical History?: Yes Hx Hypertension: Yes Hx Asthma: No - Surgical History Past Surgical History?: Yes Additional Surgical History: x3. D & C - Social History Smoking Status: Current Every Day Smoker Substance Use Type: Alcohol - Medications Home Medications: Home Medications Medication Instructions Recorded Confirmed Last Taken Type Prednisone 10 mg PO 05/29/18 Unknown History Zithromax Z-NEY 250 mg PO DAILY 05/29/18 05/29/18 Unknown History Butalb/Acetamin/Caff 50-325-40 1 tab PO Q6HR PRN #10 tab 06/13/18 Unknown Rx [Fioricet] Ibuprofen [Motrin 600 MG tab] 600 mg PO Q8H #15 tablet 06/27/18 Unknown Rx ALPRAZolam [Xanax TAB] 0.25 mg PO DAILY PRN #12 tablet 03/21/19 Unknown Rx ED Physical Exam - General Limitations: No Limitations General appearance: alert, in no apparent distress - Head Head exam: Present: atraumatic, normocephalic - Eye Eye exam: Present: normal appearance - Neck Neck exam: Present: normal inspection, full ROM. Absent: tenderness, meningismus, lymphadenopathy - Respiratory Respiratory exam: Present: normal lung sounds bilaterally. Absent: respiratory distress, wheezes, rales, rhonchi, stridor, chest wall tenderness, accessory muscle use, decreased breath sounds, prolonged expiratory - Cardiovascular Cardiovascular Exam: Present: regular rate, normal rhythm, normal heart sounds. Absent: bradycardia, tachycardia, irregular rhythm, systolic murmur, diastolic murmur, rubs, gallop - Extremities Exam Extremities exam: Present: normal inspection, full ROM, normal capillary refill - Back Exam Back exam: Present: normal inspection, full ROM - Neurological Exam Neurological exam: Present: alert, oriented X3, normal gait - Psychiatric Psychiatric exam: Present: normal affect, normal mood, anxious. Absent: depressed, agitated, flat affect, manic, homicidal ideation, suicidal ideation - Skin Skin exam: Present: warm, dry, intact, normal color. Absent: rash ED Course Vital Signs 03/20/19 23:08 Temperature 98 F Pulse Rate 84 Respiratory 20 Rate Blood Pressure 144/99 O2 Sat by Pulse 100 Oximetry - Reevaluation(s) Reevaluation #1: 03/21/19 03:24 Patient is speaking in full sentences with no signs of distress noted. RYAN score - Ryan Score Age > 65: (0) No Aspirin use within the Past 7 Days: (0) No 3 or more CAD Risk Factors: (0) No 2 or more Angina events in past 24 hrs: (0) No Known CAD with more than 50% Stenosis: (0) No Elevated Cardiac Markers: (0) No ST Deviation Greater than 0.5mm: (0) No RYAN Score: 0 ED Medical Decision Making - Lab Data Result diagrams: 03/21/19 02:20 03/21/19 02:20 - Medical Decision Making This is a 28-year-old female that presents with anxiety. Patient is stable and was examined by me. Wells criteria for DVT/SVT/PE 0 points. Negative d-dimmer. EKG normal sinus rhythm with no significant changes in ST. Chest xray dictated by the radiologist. PAtient is notified of the Xray report with no questions noted. Labs within normal limits. Negative troponin. Currently patient stated she is not anxious and chest pain has resolved. Patient was instructed to Follow-up with a primary care/hotel controller doctor in 3-5 days or if symptoms worsen and continue return to emergency room as soon as possible. At time of discharge, the patient does not seem toxic or ill in appearance. No acute signs of distress noted. Patient agrees to discharge treatment plan of care. No further questions noted by the patient. Critical care attestation.: If time is entered above; I have spent that time in minutes in the direct care of this critically ill patient, excluding procedure time. ED Disposition Clinical Impression: Anxiety Disposition: DC-01 TO HOME OR SELFCARE Is pt being admited?: No Does the pt Need Aspirin: No Condition: Stable Instructions: Anxiety (ED), Alprazolam (By mouth) Additional Instructions: Follow-up with a primary care/hotel controller doctor in 3-5 days or if symptoms worsen and continue return to emergency room as soon as possible. Do not operate any machinery while taking Xanax as this may cause drowsiness. Prescriptions: ALPRAZolam [Xanax TAB] 0.25 mg PO DAILY PRN #12 tablet PRN Reason: Anxiety Referrals: AIRAM EATON MD [Primary Care Provider] - 3-5 Days PRIMARY CAREMD [Referring] - 3-5 Days IMELDA MONTOYA MD [Staff Physician] - 3-[address] [facility] [Outside] - 3-5 Days [facility] [Outside] - 3-5 Days
[2019-03-21 03:59] VITALS: BP 133/90
== END 2019-03-21 04:00 | disposition home or self-care (01) ==
LOC: ED 22:47
DX: F41.9 Anxiety disorder, unspecified (principal); R07.89 Other chest pain; I10 Essential (primary) hypertension; F17.200 Nicotine dependence, unspecified, uncomplicated; Z88.0 Allergy status to penicillin; Z79.1 Long term (current) use of non-steroidal anti-inflammatories (NSAID); Z79.899 Other long term (current) drug therapy
CPT/HCPCS: 36415; 71046; 80048; 84484; 85025; 93005; 93010; 99284

== ENCOUNTER 2019-08-22 23:43 | Emergency (ER) | payer OTHER, MEDICAID ==
--- NOTE | 2019-08-23 00:30 | XRay Report ---
CHEST 1 VIEW, 08/23/2019 12:18 AM CLINICAL INFORMATION/INDICATION: Chest pain COMPARISON: Chest radiograph, 03/20/2019 FINDINGS: SUPPORT DEVICES: None. HEART: The cardiac silhouette is normal in size. LUNGS/PLEURA: The lungs are clear of focal airspace disease or significant pleural effusion. ADDITIONAL FINDINGS: No additional acute findings. IMPRESSION: 1. No evidence of acute cardiopulmonary process. Signer Name: Anusha Flores MD Signed: 08/23/2019 12:25 AM Workstation Name: [id number]
[2019-08-23] MEDS ORDERED: ONDANSETRON 4 MG ODT TAB PO ONE (00:32)
--- NOTE | 2019-08-23 00:43 | Emergency Department Report ---
ED General Adult HPI - General Chief complaint: Chest Pain Stated complaint: CHEST PAIN/NAUSEA Time Seen by Provider: 08/23/19 00:13 Source: patient Mode of arrival: Ambulatory Limitations: No Limitations - History of Present Illness Initial comments: 28-year-old -[place] female presents to the emergency room reporting she is having chest pain from her anxiety and nausea for the last 6 hours. Patient reports a past medical history of anxiety hypertension she denies any radiation of pain no vomiting does admit to chest pain midsternal feels tight. She also reports some lower abdominal pain from multiple bowel movements of soft stool. She states that she takes diltiazem and she is compliant on medications. Onset/Timin -: hour(s) Location: chest Radiation: non-radiation Quality: other (tightness) Consistency: intermittent Improves with: none Worsens with: none Associated Symptoms: chest pain, nausea/vomiting (no vomiting). denies: cough, diaphoresis, fever/chills, headaches, loss of appetite, malaise, shortness of breath, weakness Treatments Prior to Arrival: none - Related Data Home Medications Medication Instructions Recorded Confirmed Last Taken Prednisone 10 mg PO 05/29/18 Unknown Zithromax Z-NEY 250 mg PO DAILY 05/29/18 05/29/18 Unknown Previous Rx's Medication Instructions Recorded Last Taken Type Butalb/Acetamin/Caff 50-325-40 1 tab PO Q6HR PRN #10 tab 06/13/18 Unknown Rx [Fioricet] Ibuprofen [Motrin 600 MG tab] 600 mg PO Q8H #15 tablet 06/27/18 Unknown Rx ALPRAZolam [Xanax TAB] 0.25 mg PO DAILY PRN #12 tablet 03/21/19 Unknown Rx Ondansetron [Zofran ODT TAB] 4 mg PO Q8HR PRN #6 tab.rapdis 08/23/19 Unknown Rx hydrOXYzine HCL [Atarax] 25 mg PO Q6HR PRN #12 tablet 08/23/19 Unknown Rx Allergies Allergy/AdvReac Type Severity Reaction Status Date / Time Penicillins Allergy Hives Verified 04/21/18 08:29 ED Review of Systems ROS: Stated complaint: CHEST PAIN/NAUSEA Other details as noted in HPI ED Past Medical Hx - Past Medical History Previous Medical History?: Yes Hx Hypertension: Yes Hx Psychiatric Treatment: Yes (Anxiety) Hx Asthma: No - Surgical History Past Surgical History?: Yes Additional Surgical History: x3. D & C - Social History Smoking Status: Current Every Day Smoker Substance Use Type: Alcohol - Medications Home Medications: Home Medications Medication Instructions Recorded Confirmed Last Taken Type Prednisone 10 mg PO 05/29/18 Unknown History Zithromax Z-NEY 250 mg PO DAILY 05/29/18 05/29/18 Unknown History Butalb/Acetamin/Caff 50-325-40 1 tab PO Q6HR PRN #10 tab 06/13/18 Unknown Rx [Fioricet] Ibuprofen [Motrin 600 MG tab] 600 mg PO Q8H #15 tablet 06/27/18 Unknown Rx ALPRAZolam [Xanax TAB] 0.25 mg PO DAILY PRN #12 tablet 03/21/19 Unknown Rx Ondansetron [Zofran ODT TAB] 4 mg PO Q8HR PRN #6 tab.rapdis 08/23/19 Unknown Rx hydrOXYzine HCL [Atarax] 25 mg PO Q6HR PRN #12 tablet 08/23/19 Unknown Rx ED Physical Exam - General Limitations: No Limitations ED Course Vital Signs 08/22/19 23:54 Temperature 99.0 F Pulse Rate 118 H Respiratory 44 H Rate Blood Pressure 146/102 O2 Sat by Pulse 100 Oximetry ED Medical Decision Making - Medical Decision Making 28-year-old -[place] female presents to the emergency room reporting she is having chest pain from her anxiety and nausea for the last 6 hours. Patient reports a past medical history of anxiety hypertension she denies any radiation of pain no vomiting does admit to chest pain midsternal feels tight. She also reports some lower abdominal pain from multiple bowel movements of soft stool. She states that she takes diltiazem and she is compliant on medications. Critical care attestation.: If time is entered above; I have spent that time in minutes in the direct care of this critically ill patient, excluding procedure time. ED Disposition Clinical Impression: Anxiety, Chest pain, atypical Disposition: DC-01 TO HOME OR SELFCARE Is pt being admited?: No Does the pt Need Aspirin: No Condition: Stable Instructions: Chest Pain (ED), Anxiety (ED) Prescriptions: hydrOXYzine HCL [Atarax] 25 mg PO Q6HR PRN #12 tablet PRN Reason: Anxiety Ondansetron [Zofran ODT TAB] 4 mg PO Q8HR PRN #6 tab.rapdis PRN Reason: Nausea Referrals: PRIMARY CARE,MD [Primary Care Provider] - 3-5 Days [facility] [Outside] - 3-5 Days
[2019-08-23 01:45] VITALS: BP 112/76
== END 2019-08-23 02:34 | disposition home or self-care (01) ==
LOC: ED 23:43
DX: F41.9 Anxiety disorder, unspecified (principal); R07.89 Other chest pain; I10 Essential (primary) hypertension; F17.200 Nicotine dependence, unspecified, uncomplicated; Z79.899 Other long term (current) drug therapy; Z98.890 Other specified postprocedural states; Z88.1 Allergy status to other antibiotic agents
CPT/HCPCS: 71045; 93005; 93010; Q0162

== ENCOUNTER 2019-12-16 18:59 | Emergency (ER) | payer MEDICAID ==
--- NOTE | 2019-12-16 19:48 | Emergency Department Report ---
Blank Doc - Documentation Documentation: 29-year-old female that presents with chest pain and sob. This initial assessment/diagnostic orders/clinical plan/treatment(s) is/are subject to change based on patient's health status, clinical progression and re- assessment by fellow clinical providers in the ED. Further treatment and workup at subsequent clinical providers discretion. Patient/guardians urged not to elope from the ED as their condition may be serious if not clinically assessed and managed. Initial orders include: 1- Patient sent to [facility] for further evaluation and treatment 2- ekg 3- CXR
[2019-12-16 19:49] VITALS: BP 145/112
--- NOTE | 2019-12-16 20:40 | XRay Report ---
CHEST 2 VIEWS INDICATION / CLINICAL INFORMATION: Complaining of chest pain since this morning. States that it feels like it pressure over her entire c hest. Also c/o severe headache x 3 days. BP 145/102 in triage.. COMPARISON: 08/23/19. FINDINGS: SUPPORT DEVICES: None. HEART / MEDIASTINUM: The heart size and pulmonary vasculature are normal. The aorta is normal in lucy amanda. LUNGS / PLEURA: Chronic curvilinear opacity in the right mid lung is stable. No new parenchymal or pl eural abnormality. No pneumothorax. ADDITIONAL FINDINGS: No significant additional findings. IMPRESSION: Scarring in the right midlung is stable. No acute abnormality or other change. Signer Name: Shorty Hyman MD Signed: 12/16/2019 8:36 PM Workstation Name: [id number]
--- NOTE | 2019-12-17 01:02 | Emergency Department Report ---
ED General Adult HPI - General Chief complaint: Chest Pain Stated complaint: CHEST PAIN Time Seen by Provider: 12/16/19 19:47 Source: patient Mode of arrival: Ambulatory Limitations: No Limitations - History of Present Illness Initial comments: 29-year-old -[place] female presents with chest pain since this morning. Patient states she has had a severe headache for 3 days. Patient states that her chest pain feels dull and feels like pressure. Patient has a past medical history of hypertension and is currently on diltiazem 120 mg and anxiety. Patient states that her headache is located in the frontal area. Patient denies any nausea or vomiting. Patient reports she feels mucus drainage in the back of her throat. Patient is followed by [facility]. Onset/Timin -: days(s) (headache), This morning (chest discomfort) Location: head, chest Severity scale (0 -10): 10 Quality: aching, dull Consistency: constant Improves with: none Worsens with: none Treatments Prior to Arrival: none - Related Data Home Medications Medication Instructions Recorded Confirmed Last Taken Prednisone 10 mg PO 05/29/18 Unknown Zithromax Z-NEY 250 mg PO DAILY 05/29/18 05/29/18 Unknown Previous Rx's Medication Instructions Recorded Last Taken Type Butalb/Acetamin/Caff 50-325-40 1 tab PO Q6HR PRN #10 tab 06/13/18 Unknown Rx [Fioricet] Ibuprofen [Motrin 600 MG tab] 600 mg PO Q8H #15 tablet 06/27/18 Unknown Rx ALPRAZolam [Xanax TAB] 0.25 mg PO DAILY PRN #12 tablet 03/21/19 Unknown Rx Ondansetron [Zofran ODT TAB] 4 mg PO Q8HR PRN #6 tab.rapdis 08/23/19 Unknown Rx hydrOXYzine HCL [Atarax] 25 mg PO Q6HR PRN #12 tablet 08/23/19 Unknown Rx Allergies Allergy/AdvReac Type Severity Reaction Status Date / Time Penicillins Allergy Hives Verified 04/21/18 08:29 ED Review of Systems ROS: Stated complaint: CHEST PAIN Other details as noted in HPI Comment: All other systems reviewed and negative ED Past Medical Hx - Past Medical History Hx Hypertension: Yes Hx Psychiatric Treatment: Yes (Anxiety) Hx Asthma: No - Surgical History Additional Surgical History: x3. D & C - Social History Smoking Status: Never Smoker Substance Use Type: None - Medications Home Medications: Home Medications Medication Instructions Recorded Confirmed Last Taken Type Prednisone 10 mg PO 05/29/18 Unknown History Zithromax Z-NEY 250 mg PO DAILY 05/29/18 05/29/18 Unknown History Butalb/Acetamin/Caff 50-325-40 1 tab PO Q6HR PRN #10 tab 06/13/18 Unknown Rx [Fioricet] Ibuprofen [Motrin 600 MG tab] 600 mg PO Q8H #15 tablet 06/27/18 Unknown Rx ALPRAZolam [Xanax TAB] 0.25 mg PO DAILY PRN #12 tablet 03/21/19 Unknown Rx Ondansetron [Zofran ODT TAB] 4 mg PO Q8HR PRN #6 tab.rapdis 08/23/19 Unknown Rx hydrOXYzine HCL [Atarax] 25 mg PO Q6HR PRN #12 tablet 08/23/19 Unknown Rx ED Physical Exam - General Limitations: No Limitations General appearance: alert, in no apparent distress - Head Head exam: Present: atraumatic, normocephalic - Eye Eye exam: Present: normal appearance - ENT ENT exam: Present: mucous membranes moist - Neck Neck exam: Present: normal inspection - Respiratory Respiratory exam: Present: normal lung sounds bilaterally. Absent: respiratory distress - Cardiovascular Cardiovascular Exam: Present: regular rate, normal rhythm. Absent: systolic murmur, diastolic murmur, rubs, gallop - GI/Abdominal GI/Abdominal exam: Present: soft, normal bowel sounds - Extremities Exam Extremities exam: Present: normal inspection - Back Exam Back exam: Present: normal inspection - Neurological Exam Neurological exam: Present: alert, oriented X3 - Expanded Neurological Exam Expanded Cranial nerves: EOM's Intact: Normal, Gag Reflex: Normal, Tongue Deviation: Normal, Nystagmus: Normal, Facial Sensation: Normal, Facial Palsy with Forehead Movement: Normal, Facial Palsy without Forehead Movement: Normal Cerebellar function: Finger to Nose: Normal, Heel to [place]: Normal, Romberg: Normal Upper motor neuron: Ronnie Neglect: Normal, Pronator Drift: Normal, Sensory Extinction: Normal Sensory exam: Upper Extremity Light Touch: Normal, Upper Extremity Pin Prick: Normal, Upper Extremity Temperature: Normal, UE 2 Point Discrimination: Normal, Lower Extremity Light Touch: Normal, Lower Extremity Pin Prick: Normal, Lower Extremity Temperature: Normal, LE 2 Point Discrimination: Normal Motor strength exam: RUE: 5, LUE: 5, RLE: 5, LLE: 5 Best Eye Response (Golden): (4) open spontaneously Best Motor Response (Heriberto): (6) obeys commands Best Verbal Response (Heriberto): (5) oriented Golden Total: 15 - Psychiatric Psychiatric exam: Present: normal affect, normal mood - Skin Skin exam: Present: warm, dry, intact, normal color. Absent: rash ED Course Vital Signs 12/16/19 19:47 Temperature 98.9 F Pulse Rate 105 H Respiratory 18 Rate Blood Pressure 145/112 O2 Sat by Pulse 100 Oximetry ED Medical Decision Making - Radiology Data Radiology results: report reviewed Patient: EVE BARCENAS MR#: [id number] : 1990 Acct:[id number] Age/Sex: 29 / F ADM Date: 12/16/19 Loc: ED Attending Dr: Ordering Physician: LEELEE QUIJANO NP Date of Service: 12/16/19 Procedure(s): XR chest routine 2V Accession Number(s): [id number] cc: LEELEE QUIJANO NP Fluoro Time In Minutes: CHEST 2 VIEWS INDICATION / CLINICAL INFORMATION: Complaining of chest pain since this morning. States that it feels like it pressure over her entire chest. Also c/o severe headache x 3 days. BP 145/102 in triage.. COMPARISON: 08/23/19. FINDINGS: SUPPORT DEVICES: None. HEART / MEDIASTINUM: The heart size and pulmonary vasculature are normal. The aorta is normal in caliber. LUNGS / PLEURA: Chronic curvilinear opacity in the right mid lung is stable. No new parenchymal or pleural abnormality. No pneumothorax. ADDITIONAL FINDINGS: No significant additional findings. IMPRESSION: Scarring in the right midlung is stable. No acute abnormality or other change. Signer Name: Shorty Hyman MD Signed: 12/16/2019 8:36 PM Workstation Name: [id number] Transcribed By: RT Dictated By: Shorty Hyman MD Electronically Authenticated By: Shorty Hyman MD Signed Date/Time: 12/16/192035 DD/ 33 TD/TT: - Medical Decision Making 29-year-old -[place] female presents with chest pain since this morning. Patient states she has had a severe headache for 3 days. Patient states that her chest pain feels dull and feels like pressure. Patient has a past medical history of hypertension and is currently on diltiazem 120 mg and anxiety. Patient states that her headache is located in the frontal area. Patient denies any nausea or vomiting. Patient reports she feels mucus drainage in the back of her throat. Patient is followed by [facility]. Chest x-ray is negative neuro exam is negative patient was given IV with Benadryl Reglan and Toradol. Patient reports that her chest pain and headache has resolved. Discussed the patient to follow-up with her primary care provider in the next 3 to 5 days. Critical care attestation.: If time is entered above; I have spent that time in minutes in the direct care of this critically ill patient, excluding procedure time. ED Disposition Clinical Impression: Atypical chest pain Acute headache Qualifiers: Headache type: unspecified Intractability: intractable Qualified Code(s): R51 - Headache Disposition: DC-01 TO HOME OR SELFCARE Is pt being admited?: No Does the pt Need Aspirin: No Condition: Stable Instructions: Chest Pain (ED) Additional Instructions: follow-up with her primary care provider in the next 3 to 5 days. Referrals: PRIMARY CARE, [Primary Care Provider] - 3-5 Days Forms: Work/School Release Form(ED)
[2019-12-17] MEDS ORDERED: METOCLOPRAMIDE 10 MG/2 ML INJ IV ONE (01:03)
[2019-12-17] MEDS ORDERED: diphenhydrAMINE 50 MG/ML VIAL IV ONE (01:03)
[2019-12-17] MEDS ORDERED: KETOROLAC 30 MG/1 ML INJ IV ONE (01:03)
== END 2019-12-17 02:30 | disposition home or self-care (01) ==
LOC: ED 18:59
DX: R07.89 Other chest pain (principal); R51 Headache; I10 Essential (primary) hypertension; Z88.0 Allergy status to penicillin
CPT/HCPCS: 71046; 93005; 93010; 96374; 96375; 99284; J1200; J1885; J2765

== ENCOUNTER 2019-12-23 16:09 | Emergency (ER) | payer MEDICAID ==
[2019-12-23] MEDS ORDERED: ASPIRIN 325 MG TAB PO ONE (16:29)
[2019-12-23 17:02] LABS: Basophils % (Auto) 0.3 % (0.0-1.8); Hematocrit 44.5 % (30.3-42.9); Hemoglobin 14.8 gm/dl (10.1-14.3); Lymphocytes # (Auto) 1.4 K/mm3 (1.2-5.4); Mean Corpuscular HGB Conc 33 % (30-34); Mean Corpuscular Volume 92 fl (79-97); Monocytes # (Auto) 0.6 K/mm3 (0.0-0.8); Platelet Count 381 K/mm3 (140-440); Red Blood Count 4.82 M/mm3 (3.65-5.03); Red Cell Distribution Width 14.5 % (13.2-15.2)
[2019-12-23] MEDS ORDERED: SODIUM CHLORIDE 0.9% 1000 ML 1,000 ML IV ONE ×2 (17:13)
--- NOTE | 2019-12-23 17:16 | XRay Report ---
CHEST 2 VIEWS INDICATION / CLINICAL INFORMATION: Chest Pain. COMPARISON: 12/16/2019 FINDINGS: SUPPORT DEVICES: None. HEART / MEDIASTINUM: No significant abnormality. LUNGS / PLEURA: Scarring in the right midlung. No acute interstitial or airspace pulmonary disease. N o pneumothorax. ADDITIONAL FINDINGS: No significant additional findings. IMPRESSION: 1. No acute findings. Signer Name: Duc Jerry MD Signed: 12/23/2019 5:12 PM Workstation Name: [id number]
[2019-12-23 17:23] LABS: BUN/Creatinine Ratio 9; Blood Urea Nitrogen 8 mg/dL (7-17); Calcium 10.2 mg/dL (8.4-10.2); Hemolysis Index 6
--- NOTE | 2019-12-23 17:28 | Emergency Department Report ---
ED General Adult HPI - General Chief complaint: Arrhythmia/Palpitations Stated complaint: CP/HEART RACING Time Seen by Provider: 12/23/19 17:09 Source: patient Mode of arrival: Ambulatory Limitations: No Limitations - History of Present Illness Initial comments: Patient is a 29-year-old F Slovak female who is presenting with tachycardia and some mild dizziness. Patient was is the emergency department last night because of some nasal congestion. She was diagnosed with a sinus infection and started on a Z-Eduardo. Patient is since had 4-5 episodes of diarrhea and now is complaining of palpitations and some dizziness with standing. Patient also has had decreased appetite for the past several days. She is just started drinking water but has not had any food. She denies any current nausea vomiting neck stiffness sore throat body aches. She states there is no cough she just feels as though she has some mild congestion. - Related Data Home Medications Medication Instructions Recorded Confirmed Last Taken Prednisone 10 mg PO 05/29/18 Unknown Zithromax Z-EDUARDO 250 mg PO DAILY 05/29/18 05/29/18 Unknown Previous Rx's Medication Instructions Recorded Last Taken Type Butalb/Acetamin/Caff 50-325-40 1 tab PO Q6HR PRN #10 tab 06/13/18 Unknown Rx [Fioricet] Ibuprofen [Motrin 600 MG tab] 600 mg PO Q8H #15 tablet 06/27/18 Unknown Rx ALPRAZolam [Xanax TAB] 0.25 mg PO DAILY PRN #12 tablet 03/21/19 Unknown Rx Ondansetron [Zofran ODT TAB] 4 mg PO Q8HR PRN #6 tab.rapdis 08/23/19 Unknown Rx hydrOXYzine HCL [Atarax] 25 mg PO Q6HR PRN #12 tablet 08/23/19 Unknown Rx Allergies Allergy/AdvReac Type Severity Reaction Status Date / Time Penicillins Allergy Hives Verified 04/21/18 08:29 ED Review of Systems ROS: Stated complaint: CP/HEART RACING Other details as noted in HPI Comment: All other systems reviewed and negative ED Past Medical Hx - Past Medical History Previous Medical History?: Yes Hx Hypertension: Yes Hx Psychiatric Treatment: Yes (Anxiety) Hx Asthma: No - Surgical History Past Surgical History?: Yes Additional Surgical History: x3. D & C - Social History Smoking Status: Never Smoker Substance Use Type: None - Medications Home Medications: Home Medications Medication Instructions Recorded Confirmed Last Taken Type Prednisone 10 mg PO 05/29/18 Unknown History Zithromax Z-EDUARDO 250 mg PO DAILY 05/29/18 05/29/18 Unknown History Butalb/Acetamin/Caff 50-325-40 1 tab PO Q6HR PRN #10 tab 06/13/18 Unknown Rx [Fioricet] Ibuprofen [Motrin 600 MG tab] 600 mg PO Q8H #15 tablet 06/27/18 Unknown Rx ALPRAZolam [Xanax TAB] 0.25 mg PO DAILY PRN #12 tablet 03/21/19 Unknown Rx Ondansetron [Zofran ODT TAB] 4 mg PO Q8HR PRN #6 tab.rapdis 08/23/19 Unknown Rx hydrOXYzine HCL [Atarax] 25 mg PO Q6HR PRN #12 tablet 08/23/19 Unknown Rx ED Physical Exam - General Limitations: No Limitations General appearance: alert, in no apparent distress - Head Head exam: Present: atraumatic, normocephalic - Eye Eye exam: Present: normal appearance - ENT ENT exam: Present: mucous membranes moist - Neck Neck exam: Present: normal inspection - Respiratory Respiratory exam: Present: normal lung sounds bilaterally. Absent: respiratory distress, wheezes, rales, rhonchi - Cardiovascular Cardiovascular Exam: Present: normal rhythm, tachycardia. Absent: systolic murmur, diastolic murmur, rubs, gallop - GI/Abdominal GI/Abdominal exam: Present: soft, normal bowel sounds. Absent: distended, tenderness, guarding, rebound - Extremities Exam Extremities exam: Present: normal inspection - Back Exam Back exam: Present: normal inspection - Neurological Exam Neurological exam: Present: alert, oriented X3 - Psychiatric Psychiatric exam: Present: normal affect, normal mood - Skin Skin exam: Present: warm, dry, intact, normal color. Absent: rash ED Course Vital Signs 12/23/19 12/23/19 12/23/19 16:24 16:50 17:03 Temperature 99.1 F Pulse Rate 160 H 69 Respiratory 22 20 Rate Blood Pressure 114/69 Blood Pressure 132/110 [Right] O2 Sat by Pulse 100 100 100 Oximetry 12/23/19 12/23/19 17:15 17:30 Temperature Pulse Rate 123 H 117 H Respiratory 16 16 Rate Blood Pressure 120/71 120/75 Blood Pressure [Right] O2 Sat by Pulse 100 100 Oximetry - Reevaluation(s) Reevaluation #1: 12/23/19 19:15 After a liter of normal saline the patient's heart rate is down to 100. Patient likely was simply just dehydrated from not eating and drinking well for the last several days. ED Medical Decision Making - Lab Data Result diagrams: 12/23/19 16:33 12/23/19 16:33 Lab Results 12/23/19 12/23/19 Range/Units 16:33 16:33 WBC 11.6 H (4.5-11.0) K/mm3 RBC 4.82 (3.65-5.03) M/mm3 Hgb 14.8 H (10.1-14.3) gm/dl Hct 44.5 H (30.3-42.9) % MCV 92 (79-97) fl MCH 31 (28-32) pg MCHC 33 (30-34) % RDW 14.5 (13.2-15.2) % Plt Count 381 (140-440) K/mm3 Lymph % (Auto) 12.0 L (13.4-35.0) % Mccone % (Auto) 5.0 (0.0-7.3) % Eos % (Auto) 0.0 (0.0-4.3) % Baso % (Auto) 0.3 (0.0-1.8) % Lymph # 1.4 (1.2-5.4) K/mm3 Mccone # 0.6 (0.0-0.8) K/mm3 Eos # 0.0 (0.0-0.4) K/mm3 Baso # 0.0 (0.0-0.1) K/mm3 Seg Neutrophils % 82.7 H (40.0-70.0) % Seg Neutrophils # 9.6 H (1.8-7.7) K/mm3 Sodium 136 L (137-145) mmol/L Potassium 3.3 L (3.6-5.0) mmol/L Chloride 97.4 L (98-107) mmol/L Carbon Dioxide 21 L (22-30) mmol/L Anion Gap 21 mmol/L BUN 8 (7-17) mg/dL Creatinine 0.9 (0.7-1.2) mg/dL Estimated GFR > 60 ml/min BUN/Creatinine Ratio 9 % Glucose 179 H (65-100) mg/dL Calcium 10.2 (8.4-10.2) mg/dL Troponin T < 0.010 (0.00-0.029) ng/mL - EKG Data -: EKG Interpreted by Me - EKG Data 12/23/19 17:27 EKG shows a sinus tachycardia with a rate of 147. Buhl is normal. Intervals show a prolonged QT. There is no ST segment elevation or depressions. Time of interpretation 1622 - Radiology Data Ordering Physician: STEFANO WINTERS MD Date of Service: 12/23/19 Procedure(s): XR chest routine 2V Accession Number(s): [id number] cc: STEFANO WINTERS MD Fluoro Time In Minutes: CHEST 2 VIEWS INDICATION / CLINICAL INFORMATION: Chest Pain. COMPARISON: 12/16/2019 FINDINGS: SUPPORT DEVICES: None. HEART / MEDIASTINUM: No significant abnormality. LUNGS / PLEURA: Scarring in the right midlung. No acute interstitial or airspace pulmonary disease. No pneumothorax. ADDITIONAL FINDINGS: No significant additional findings. IMPRESSION: 1. No acute findings. Signer Name: Duc Jerry MD Signed: 12/23/2019 5:12 PM Workstation Name: [id number] Critical care attestation.: If time is entered above; I have spent that time in minutes in the direct care of this critically ill patient, excluding procedure time. ED Disposition Clinical Impression: Sinusitis, acute, Dehydration, Hyponatremia Disposition: DC-01 TO HOME OR SELFCARE Is pt being admited?: No Does the pt Need Aspirin: No Condition: Stable Instructions: Dehydration (ED) Referrals: NORBERTO REYNA MD [Primary Care Provider] - 3-5 Days Time of Disposition: 19:16
[2019-12-23] MEDS ORDERED: KETOROLAC 30 MG/1 ML INJ IV ONE (19:23)
[2019-12-23 20:00] VITALS: BP 145/92
== END 2019-12-23 20:31 | disposition home or self-care (01) ==
LOC: ED 16:09
DX: J32.9 Chronic sinusitis, unspecified (principal); E86.0 Dehydration; E87.1 Hypo-osmolality and hyponatremia; I10 Essential (primary) hypertension; F41.9 Anxiety disorder, unspecified
CPT/HCPCS: 36415; 71046; 80048; 84443; 84484; 85025; 93005; 93010; 96361; 96374; 99284; J1885; J7030

== ENCOUNTER 2020-01-22 23:47 | Emergency (ER) | payer MEDICAID | END 2020-01-23 00:07 | LOC: ED 23:47 | DX: F41.9 Anxiety disorder, unspecified (principal); Z53.21 Procedure and treatment not carried out due to patient leaving prior to being seen by health care provider ==

== ENCOUNTER 2020-02-03 18:23 | Emergency (ER) | payer MEDICAID ==
[2020-02-03] MEDS ORDERED: ASPIRIN 325 MG TAB PO ONE (18:34)
[2020-02-03 18:49] LABS: Basophils % (Auto) 0.7 % (0.0-1.8); Eosinophils # (Auto) 0.1 K/mm3 (0.0-0.4); Eosinophils % (Auto) 1.5 % (0.0-4.3); Hematocrit 42.1 % (30.3-42.9); Hemoglobin 14.2 gm/dl (10.1-14.3); Lymphocytes # (Auto) 2.2 K/mm3 (1.2-5.4); Lymphocytes % (Auto) 34.1 % (13.4-35.0); Mean Corpuscular HGB Conc 34 % (30-34); Mean Corpuscular Volume 92 fl (79-97); Monocytes # (Auto) 0.7 K/mm3 (0.0-0.8); Monocytes % (Auto) 11.7 % (0.0-7.3); Platelet Count 386 K/mm3 (140-440); Red Blood Count 4.57 M/mm3 (3.65-5.03); Red Cell Distribution Width 14.4 % (13.2-15.2)
--- NOTE | 2020-02-03 18:57 | XRay Report ---
CHEST 2 VIEWS INDICATION / CLINICAL INFORMATION: MAIN: Chest Pain; left sided, mid chest pain today; hx of high blood pressure. COMPARISON: Chest x-ray 12/23/2019 FINDINGS: SUPPORT DEVICES: None. HEART / MEDIASTINUM: No significant abnormality. LUNGS / PLEURA: No significant pulmonary or pleural abnormality. No pneumothorax. ADDITIONAL FINDINGS: No significant additional findings. IMPRESSION: 1. No acute findings. Signer Name: Warren Morales MD Signed: 02/03/2020 6:52 PM Workstation Name: [id number]
[2020-02-03 19:08] LABS: BUN/Creatinine Ratio 14; Blood Urea Nitrogen 10 mg/dL (7-17); Calcium 9.7 mg/dL (8.4-10.2); Hemolysis Index 8
[2020-02-03] MEDS ORDERED: FAMOTIDINE 20 MG TAB PO ONE (20:43)
[2020-02-03] MEDS ORDERED: LIDOCAINE VISCOUS 2% 15 ML ORAL LIQD PO ONE (20:43)
[2020-02-03] MEDS ORDERED: ALUM-MAG HYDROXIDE-SIMETHICONE 200-200-20MG/5ML ORAL LIQD 30 ML PO ONE (20:43)
[2020-02-03] MEDS ORDERED: hydrOXYzine PAMOATE 25 MG CAP PO ONE (20:45)
--- NOTE | 2020-02-03 20:55 | Emergency Department Report ---
ED Chest Pain HPI - General Chief Complaint: Chest Pain Stated Complaint: CHEST PAIN Source: patient Mode of arrival: Ambulatory Limitations: No Limitations - History of Present Illness Initial Comments: Patient is a 29-year-old -German female with a history of hypertension and anxiety and who smokes cigarettes presents to the ED with complaint of acute onset persistent substernal chest pain that radiates to the left chest wall and left shoulder intermittently for the last 12 hours patient states that the pain is sharp, tight and pressure-like and has been waxing and waning for the last 12 hours. Patient states that she has not taken any medication at home as she thought that the symptoms are due to her chronic anxiety. Patient states that she decided come to the ED for evaluation after the pain became more persistent and she grew more scared. Patient denies shortness of breath, dizziness, headache, jaw pain, neck pain, nausea and vomiting, fever, chills, cough, sore throat, abdominal pain, back pain, heavy lifting, traumatic injury or fall and diaphoresis. MD Complaint: chest pain, other (anxiety) -: Sudden, hour(s) (12) Onset: during rest Pain Location: substernal, left chest Pain Radiation: LUE (shoulder) Severity: severe Severity scale (0 -10): 8 Quality: aching, sharp, pressure Consistency: intermittent Improves With: nothing Worsens With: nothing re: denies: nausea, vomting, diaphoresis, dyspnea, sense of impending doom Other Symptoms: denies: cough, fever, syncope, rash, acid taste in mouth, leg swelling, palpitations, burping, other Treatments Prior to Arrival: none Aspirin use within the Past 7 Days: (0) No - Related Data On Oral Contraceptives: No Home Medications Medication Instructions Recorded Confirmed Last Taken Prednisone 10 mg PO 05/29/18 Unknown Zithromax Z-NEY 250 mg PO DAILY 05/29/18 05/29/18 Unknown Previous Rx's Medication Instructions Recorded Last Taken Type Butalb/Acetamin/Caff 50-325-40 1 tab PO Q6HR PRN #10 tab 06/13/18 Unknown Rx [Fioricet] Ibuprofen [Motrin 600 MG tab] 600 mg PO Q8H #15 tablet 06/27/18 Unknown Rx ALPRAZolam [Xanax TAB] 0.25 mg PO DAILY PRN #12 tablet 03/21/19 Unknown Rx Ondansetron [Zofran ODT TAB] 4 mg PO Q8HR PRN #6 tab.rapdis 08/23/19 Unknown Rx hydrOXYzine HCL [Atarax] 25 mg PO Q6HR PRN #12 tablet 08/23/19 Unknown Rx Naproxen 500 mg PO Q12H PRN #20 tablet 02/03/20 Unknown Rx hydrOXYzine PAMOATE [Vistaril] 25 mg PO Q6HR PRN #30 capsule 02/03/20 Unknown Rx Allergies Allergy/AdvReac Type Severity Reaction Status Date / Time Penicillins Allergy Hives Verified 01/22/20 23:54 Heart Score - HEART Score History: Slightly suspicious EKG: Normal Age: < 45 Risk factors: 1-2 risk factors Troponin: < normal limit HEART Score: 1 - Critical Actions Critical Actions: 0-3 pts:0.9-1.7%risk of adverse cardiac event.Candidate for discharge ED Review of Systems ROS: Stated complaint: CHEST PAIN Other details as noted in HPI Constitutional: denies: chills, fever Eyes: denies: eye pain, eye discharge, vision change ENT: denies: ear pain, throat pain Respiratory: denies: cough, shortness of breath, wheezing Cardiovascular: chest pain. denies: palpitations Endocrine: no symptoms reported Gastrointestinal: denies: abdominal pain, nausea, diarrhea Genitourinary: denies: urgency, dysuria, discharge Musculoskeletal: denies: back pain, joint swelling, arthralgia Skin: denies: rash, lesions Neurological: denies: headache, weakness, paresthesias Psychiatric: anxiety. denies: depression Hematological/Lymphatic: denies: easy bleeding, easy bruising ED Past Medical Hx - Past Medical History Previous Medical History?: Yes Hx Hypertension: Yes Hx Psychiatric Treatment: Yes (Anxiety) Hx Asthma: No - Surgical History Past Surgical History?: Yes Additional Surgical History: x3. D & C - Social History Smoking Status: Current Every Day Smoker Substance Use Type: None - Medications Home Medications: Home Medications Medication Instructions Recorded Confirmed Last Taken Type Prednisone 10 mg PO 05/29/18 Unknown History Zithromax Z-NEY 250 mg PO DAILY 05/29/18 05/29/18 Unknown History Butalb/Acetamin/Caff 50-325-40 1 tab PO Q6HR PRN #10 tab 06/13/18 Unknown Rx [Fioricet] Ibuprofen [Motrin 600 MG tab] 600 mg PO Q8H #15 tablet 06/27/18 Unknown Rx ALPRAZolam [Xanax TAB] 0.25 mg PO DAILY PRN #12 tablet 03/21/19 Unknown Rx Ondansetron [Zofran ODT TAB] 4 mg PO Q8HR PRN #6 tab.rapdis 08/23/19 Unknown Rx hydrOXYzine HCL [Atarax] 25 mg PO Q6HR PRN #12 tablet 08/23/19 Unknown Rx Naproxen 500 mg PO Q12H PRN #20 tablet 02/03/20 Unknown Rx hydrOXYzine PAMOATE [Vistaril] 25 mg PO Q6HR PRN #30 capsule 02/03/20 Unknown Rx ED Physical Exam - General Limitations: No Limitations General appearance: alert, in no apparent distress, anxious - Head Head exam: Present: atraumatic, normocephalic, normal inspection - Eye Eye exam: Present: normal appearance, PERRL, EOMI Pupils: Present: normal accommodation - ENT ENT exam: Present: normal exam, normal orophraynx, mucous membranes moist, TM's normal bilaterally, normal external ear exam - Neck Neck exam: Present: normal inspection, full ROM - Respiratory Respiratory exam: Present: normal lung sounds bilaterally, chest wall tenderness (Palpable reproducible substernal and left-sided chest wall tenderness). Absent: respiratory distress, wheezes, rales, rhonchi, accessory muscle use, decreased breath sounds - Cardiovascular Cardiovascular Exam: Present: normal rhythm, tachycardia, normal heart sounds. Absent: systolic murmur, diastolic murmur, rubs, gallop - GI/Abdominal GI/Abdominal exam: Present: soft, normal bowel sounds. Absent: distended, tenderness, rebound, hyperactive bowel sounds, hypoactive bowel sounds - Extremities Exam Extremities exam: Present: normal inspection, full ROM, normal capillary refill - Back Exam Back exam: Present: normal inspection, full ROM. Absent: tenderness, CVA tenderness (R), muscle spasm, paraspinal tenderness, vertebral tenderness - Neurological Exam Neurological exam: Present: alert, oriented X3, CN II-XII intact, normal gait, reflexes normal - Psychiatric Psychiatric exam: Present: normal affect, normal mood, anxious - Skin Skin exam: Present: warm, dry, intact, normal color. Absent: rash ED Course Vital Signs 02/03/20 02/03/20 02/03/20 18:33 20:19 20:30 Pulse Rate 119 H 94 H 81 Respiratory 18 16 14 Rate Blood Pressure 130/89 [Right] O2 Sat by Pulse 100 100 100 Oximetry 02/03/20 02/03/20 20:46 21:00 Pulse Rate 87 88 Respiratory 27 H 26 H Rate Blood Pressure [Right] O2 Sat by Pulse 99 100 Oximetry RYAN score - Ryan Score Age > 65: (0) No Aspirin use within the Past 7 Days: (0) No 3 or more CAD Risk Factors: (0) No 2 or more Angina events in past 24 hrs: (0) No Known CAD with more than 50% Stenosis: (0) No Elevated Cardiac Markers: (0) No ST Deviation Greater than 0.5mm: (0) No RYAN Score: 0 ED Medical Decision Making - Lab Data Result diagrams: 02/03/20 18:39 02/03/20 18:39 - EKG Data EKG shows normal: sinus rhythm Rate: tachycardia - EKG Data When compared to previous EKG there are: no significant change Interpretation: normal EKG 02/04/20 06:09 The EKG shows sinus tachycardia with a ventricular rate of [address] or T wave abnormalities, or pathological Q waves. - Radiology Data Radiology results: report reviewed, image reviewed Findings [address] [address] XRay Report Signed Patient: EVE BARCENAS MR#: [id number] : 1990 Acct:[id number] Age/Sex: 29 / F ADM Date: 02/03/20 Loc: ED Attending Dr: Ordering Physician: ED MD CHONG Date of Service: 02/03/20 Procedure(s): XR chest routine 2V Accession Number(s): [id number] cc: ED MD CHONG Fluoro Time In Minutes: CHEST 2 VIEWS INDICATION / CLINICAL INFORMATION: MAIN: Chest Pain; left sided, mid chest pain today; hx of high blood pressure. COMPARISON: Chest x-ray 12/23/2019 FINDINGS: SUPPORT DEVICES: None. HEART / MEDIASTINUM: No significant abnormality. LUNGS / PLEURA: No significant pulmonary or pleural abnormality. No pneumothorax. ADDITIONAL FINDINGS: No significant additional findings. IMPRESSION: 1. No acute findings. Signer Name: Warren Morales MD Signed: 02/03/2020 6:52 PM Workstation Name: [id number] Transcribed By: TL Dictated By: Warren Morales MD Electronically Authenticated By: Warren Morales MD Signed Date/Time: 02/03/201851 DD/ 51 TD/TT: - Medical Decision Making This is a 29-year-old -German female with a history of hypertension and anxiety and who smokes cigarettes presents to the ED with complaint of acute onset persistent substernal chest pain that radiates to the left chest wall and left shoulder intermittently for the last 12 hours patient states that the pain is sharp, tight and pressure-like and has been waxing and waning for the last 12 hours. Patient states that she has not taken any medication at home as she thought that the symptoms are due to her chronic anxiety. Patient states that she decided come to the ED for evaluation after the pain became more persistent and she grew more scared. In the ED, patient is alert and oriented x3 and is not in distress, but tachycardic and afebrile in triage. EKG shows sinus tachycardia with a ventricular rate of [address] or T wave abnormalities or pathological Q waves. Chest x-ray shows no acute cardiopulmonary abnormalities or pneumonitis. Lab test results were reviewed and are all nonactionable including initial and 3-hour repeat troponin levels but patient had mild hyperglycemia 116 mg/dL. Patient was treated for anxiety in the ED and pain, and also given aspirin as part of the chest pain protocol. Patient's heart score is 1 based on the patient's past medical history of hypertension and cigarette smoking. Patient is not on control or does not process any other risk factor for PE. Patient was however tachycardic in [facility] likely due to untreated anxiety on arrival. The tachycardia however resolved when the patient was reevaluated in the room. In addition, the patient chest pain was reproducible upon palpation of the patient's chest wall during the physical exam, further lending credence to the fact that the patient symptoms are mainly musculoskeletal or anxiety driven and not due to ACS. Patient is noted to have significant chronic anxiety for which she is not taking any medications at this time. On reevaluation, patient felt better, tachycardia resolved and anxiety also improved significantly as stated by the patient. Patient was discharged home on medications for anxiety and NSAIDs for chest wall pain and was advised to follow-up with her primary care physician in 5 to 7 days for reevaluation or return to the ED immediately if symptoms get worse. - Differential Diagnosis CAD; Anxiety; Pneumonia; Muscle strain; Costochondritis Critical care attestation.: If time is entered above; I have spent that time in minutes in the direct care of this critically ill patient, excluding procedure time. ED Disposition Clinical Impression: Acute nonspecific chest pain with low risk of coronary artery disease, Anxiety as acute reaction to exceptional stress, Anterior chest wall pain, Acute costochondritis Disposition: TO HOME OR SELFCARE Is pt being admited?: No Does the pt Need Aspirin: No Condition: Stable Instructions: Chest Pain (ED), Costochondritis (ED), Generalized Anxiety Disorder (ED) Additional Instructions: All lab test results are nonactionable including troponin levels for cardiac ischemia. Chest x-ray shows no acute cardiopulmonary abnormalities or pneumonitis. Your symptoms are likely due to persistent anxiety. Therefore mariela e medications with food, drink plenty of fluids and follow-up with your primary care physician in 7 to 10 days for reevaluation. Return to the ED immediately if symptoms get worse. Prescriptions: Naproxen 500 mg PO Q12H PRN #20 tablet PRN Reason: Pain , Severe (7-10) hydrOXYzine PAMOATE [Vistaril] 25 mg PO Q6HR PRN #30 capsule PRN Reason: Anxiety Referrals: [facility] [Provider Group] - 3-5 Days Time of Disposition: 23:31 Print Language: ITALIAN
[2020-02-04 13:36] VITALS: BP 130/89
== END 2020-02-03 23:46 | disposition home or self-care (01) ==
LOC: ED 18:23
DX: F41.1 Generalized anxiety disorder (principal); F43.0 Acute stress reaction; M94.0 Chondrocostal junction syndrome [Tietze]; R07.89 Other chest pain; I10 Essential (primary) hypertension; F17.200 Nicotine dependence, unspecified, uncomplicated; Z79.899 Other long term (current) drug therapy; Z98.890 Other specified postprocedural states; Z88.0 Allergy status to penicillin
CPT/HCPCS: 36415; 71046; 80048; 84484; 85025; 93005; Q0177

== ENCOUNTER 2020-06-26 18:00 | Emergency (ER) | payer MEDICAID ==
--- NOTE | 2020-06-26 18:43 | XRay Report ---
CHEST 1 VIEW INDICATION / CLINICAL INFORMATION: Chest Pain. FINDINGS: SUPPORT DEVICES: None. HEART / MEDIASTINUM: No significant abnormality. LUNGS / PLEURA: No significant pulmonary or pleural abnormality. No pneumothorax. ADDITIONAL FINDINGS: No significant additional findings. IMPRESSION: 1. No acute findings. Signer Name: Rafita Brenner MD Signed: 06/26/2020 6:39 PM Workstation Name: [id number]
[2020-06-26] MEDS ORDERED: ASPIRIN 325 MG TAB PO ONE (19:44)
[2020-06-26] MEDS ORDERED: BUTALB/ACETAMINOPHEN/CAFFEINE TAB PO ONE ×2 (19:44→19:45)
[2020-06-26 20:21] LABS: Basophils # (Auto) 0.1 K/mm3 (0.0-0.1); Basophils % (Auto) 0.8 % (0.0-1.8); Eosinophils # (Auto) 0.1 K/mm3 (0.0-0.4); Eosinophils % (Auto) 1.5 % (0.0-4.3); Hematocrit 39.9 % (30.3-42.9); Lymphocytes # (Auto) 1.8 K/mm3 (1.2-5.4); Lymphocytes % (Auto) 27.2 % (13.4-35.0); Mean Corpuscular HGB Conc 35 % (30-34); Mean Corpuscular Volume 92 fl (79-97); Monocytes # (Auto) 0.8 K/mm3 (0.0-0.8); Platelet Count 321 K/mm3 (140-440); Red Blood Count 4.36 M/mm3 (3.65-5.03); Red Cell Distribution Width 14.2 % (13.2-15.2)
[2020-06-26 20:46] LABS: Alanine Aminotransferase 18 units/L (7-56); BUN/Creatinine Ratio 14; Blood Urea Nitrogen 10 mg/dL (7-17); Calcium 9.5 mg/dL (8.4-10.2); Hemolysis Index 5
--- NOTE | 2020-06-26 21:23 | Emergency Department Report ---
ED Chest Pain HPI - General Chief Complaint: Chest Pain Stated Complaint: HEADACHES 2 WKS/CP 3DAYS Source: patient Mode of arrival: Ambulatory Limitations: No Limitations - History of Present Illness Initial Comments: Patient is a 29-year-old -Tajik female with a history of hypertension, tobacco abuse and anxiety who presents to the ED with complaint of acute onset persistent headache for the last 3 days and persistent anterior chest wall pain intermittently for the last 12 hours. Patient also states that she has also had intermittent chest tightness due to her chronic anxiety. Patient states that she drank some liquor prior to arrival in the ED since usually the alcohol "comes my anxiety". Patient denies dizziness, cough, lightheadedness, palpitations, nausea, vomiting, diarrhea, abdominal pain, neck pain, numbness and tingling or weakness of upper and lower extremities bilaterally, seizures, sore throat, traumatic injury or heavy lifting and change in vision. MD Complaint: chest pain (Anterior chest wall pain), other (Anxiety; headache) -: Sudden, days(s) (3) Onset: during exertion, awoke with symptoms Pain Location: substernal Pain Radiation: none Severity: moderate Severity scale (0 -10): 6 Quality: aching, sharp Consistency: constant Improves With: nothing Worsens With: palpation, movement re: other (anxiety). denies: nausea, vomting, diaphoresis, dyspnea, sense of impending doom Other Symptoms: denies: cough, fever, syncope, rash, acid taste in mouth, leg swelling, palpitations, burping, other Treatments Prior to Arrival: none Aspirin use within the Past 7 Days: (0) No - Related Data On Oral Contraceptives: No Home Medications Medication Instructions Recorded Confirmed Last Taken Prednisone 10 mg PO 05/29/18 Unknown Zithromax Z-NEY 250 mg PO DAILY 05/29/18 05/29/18 Unknown Previous Rx's Medication Instructions Recorded Last Taken Type Ibuprofen [Motrin 600 MG tab] 600 mg PO Q8H #15 tablet 06/27/18 Unknown Rx ALPRAZolam [Xanax TAB] 0.25 mg PO DAILY PRN #12 tablet 03/21/19 Unknown Rx Ondansetron [Zofran ODT TAB] 4 mg PO Q8HR PRN #6 tab.rapdis 08/23/19 Unknown Rx hydrOXYzine PAMOATE [Vistaril] 25 mg PO Q6HR PRN #30 capsule 02/03/20 Unknown Rx Benzonatate [Tessalon Perles] 100 mg PO Q8HR PRN #12 capsule 04/02/20 Unknown Rx Butalb/Acetamin/Caff 50-325-40 1 - 2 tab PO Q6HR PRN #12 tab 06/26/20 Unknown Rx [Fioricet 50-325-40] Naproxen 500 mg PO Q12H PRN #30 tablet 06/26/20 Unknown Rx hydrOXYzine HCL [Atarax] 25 mg PO Q6HR PRN #30 tablet 06/26/20 Unknown Rx Allergies Allergy/AdvReac Type Severity Reaction Status Date / Time Penicillins Allergy Hives Verified 01/22/20 23:54 Heart Score - HEART Score History: Slightly suspicious EKG: Normal Age: < 45 Risk factors: 1-2 risk factors Troponin: < normal limit HEART Score: 1 - Critical Actions Critical Actions: 0-3 pts:0.9-1.7%risk of adverse cardiac event.Candidate for discharge ED Review of Systems ROS: Stated complaint: HEADACHES 2 WKS/CP 3DAYS Other details as noted in HPI Constitutional: denies: chills, fever Eyes: denies: eye pain, eye discharge, vision change ENT: denies: ear pain, throat pain Respiratory: denies: cough, shortness of breath, wheezing Cardiovascular: chest pain (anterior chest wall pain). denies: palpitations Endocrine: no symptoms reported Gastrointestinal: denies: abdominal pain, nausea, vomiting, diarrhea Genitourinary: denies: urgency, dysuria, discharge Musculoskeletal: denies: back pain, joint swelling, arthralgia Skin: denies: rash, lesions Neurological: headache. denies: weakness, paresthesias Psychiatric: anxiety. denies: depression Hematological/Lymphatic: denies: easy bleeding, easy bruising ED Past Medical Hx - Past Medical History Previous Medical History?: Yes Hx Hypertension: Yes Hx Psychiatric Treatment: Yes (Anxiety) Hx Asthma: No - Surgical History Past Surgical History?: Yes Additional Surgical History: x3. D & C - Social History Smoking Status: Current Every Day Smoker Substance Use Type: Alcohol - Medications Home Medications: Home Medications Medication Instructions Recorded Confirmed Last Taken Type Prednisone 10 mg PO 05/29/18 Unknown History Zithromax Z-NEY 250 mg PO DAILY 05/29/18 05/29/18 Unknown History Ibuprofen [Motrin 600 MG tab] 600 mg PO Q8H #15 tablet 06/27/18 Unknown Rx ALPRAZolam [Xanax TAB] 0.25 mg PO DAILY PRN #12 tablet 03/21/19 Unknown Rx Ondansetron [Zofran ODT TAB] 4 mg PO Q8HR PRN #6 tab.rapdis 08/23/19 Unknown Rx hydrOXYzine PAMOATE [Vistaril] 25 mg PO Q6HR PRN #30 capsule 02/03/20 Unknown Rx Benzonatate [Tessalon Perles] 100 mg PO Q8HR PRN #12 capsule 04/02/20 Unknown Rx Butalb/Acetamin/Caff 50-325-40 1 - 2 tab PO Q6HR PRN #12 tab 06/26/20 Unknown Rx [Fioricet 50-325-40] Naproxen 500 mg PO Q12H PRN #30 tablet 06/26/20 Unknown Rx hydrOXYzine HCL [Atarax] 25 mg PO Q6HR PRN #30 tablet 06/26/20 Unknown Rx ED Physical Exam - General Limitations: No Limitations General appearance: alert, in no apparent distress - Head Head exam: Present: atraumatic, normocephalic, normal inspection - Eye Eye exam: Present: normal appearance, PERRL, EOMI Pupils: Present: normal accommodation - ENT ENT exam: Present: normal exam, normal orophraynx, mucous membranes moist, TM's normal bilaterally, normal external ear exam - Neck Neck exam: Present: normal inspection, full ROM. Absent: tenderness, lymphadenopathy, thyromegaly - Respiratory Respiratory exam: Present: normal lung sounds bilaterally, chest wall tenderness (Palpable reproducible anterior chest wall tenderness). Absent: respiratory distress, wheezes, rales, stridor, accessory muscle use, decreased breath sounds - Cardiovascular Cardiovascular Exam: Present: normal rhythm, tachycardia, normal heart sounds. Absent: systolic murmur, diastolic murmur, rubs, gallop - GI/Abdominal GI/Abdominal exam: Present: soft, normal bowel sounds. Absent: tenderness, guarding, hyperactive bowel sounds, hypoactive bowel sounds - Extremities Exam Extremities exam: Present: normal inspection, full ROM, normal capillary refill - Back Exam Back exam: Present: normal inspection, full ROM. Absent: tenderness, CVA tenderness (R), CVA tenderness (L), muscle spasm - Neurological Exam Neurological exam: Present: alert, oriented X3, CN II-XII intact, normal gait, reflexes normal - Psychiatric Psychiatric exam: Present: normal affect, normal mood, anxious - Skin Skin exam: Present: warm, dry, intact, normal color. Absent: rash RYAN score - Ryan Score Age > 65: (0) No Aspirin use within the Past 7 Days: (0) No 3 or more CAD Risk Factors: (0) No 2 or more Angina events in past 24 hrs: (0) No Known CAD with more than 50% Stenosis: (0) No Elevated Cardiac Markers: (0) No ST Deviation Greater than 0.5mm: (0) No RYAN Score: 0 ED Medical Decision Making - Lab Data Result diagrams: 06/26/20 19:50 06/26/20 19:50 - EKG Data EKG shows normal: sinus rhythm Rate: tachycardia - EKG Data Interpretation: normal EKG 06/26/20 22:08 EKG shows sinus tachycardia with a ventricular rate of [address] or T wave abnormalities. - Radiology Data Radiology results: report reviewed, image reviewed Findings [facility] [address] [place] [address] XRay Report Signed Patient: EVE BARCENAS MR#: [id number] : 1990 Acct:[id number] Age/Sex: 29 / F ADM Date: 06/26/20 Loc: ED Attending Dr: Ordering Physician: ED MD CHONG Date of Service: 06/26/20 Procedure(s): XR chest 1V ap Accession Number(s): [id number] cc: ED MD CHONG Fluoro Time In Minutes: CHEST 1 VIEW INDICATION / CLINICAL INFORMATION: Chest Pain. FINDINGS: SUPPORT DEVICES: None. HEART / MEDIASTINUM: No significant abnormality. LUNGS / PLEURA: No significant pulmonary or pleural abnormality. No pneumothorax. ADDITIONAL FINDINGS: No significant additional findings. IMPRESSION: 1. No acute findings. Signer Name: Rafita Brenner MD Signed: 06/26/2020 6:39 PM Workstation Name: [id number] Transcribed By: BC Dictated By: Rafita Brenner MD Electronically Authenticated By: Rafita Brenner MD Signed Date/Time: [id number] DD/ 38 TD/TT: - Medical Decision Making This is a 29-year-old -Tajik female with a history of hypertension, tobacco abuse and anxiety who presents to the ED with complaint of acute onset persistent headache for the last 3 days and persistent anterior chest wall pain intermittently for the last 12 hours. Patient also states that she has also had intermittent chest tightness due to her chronic anxiety. Patient states that she drank some liquor prior to arrival in the ED since usually the alcohol "comes my anxiety". In the ED, patient is alert and oriented x3 and is not in distress but tachycardic, anxious and crying in pain. Patient was treated for pain in the ED and chest x-ray shows no acute cardiopulmonary abnormalities or pneumonitis. EKG shows sinus tachycardia with a ventricular rate of [address] or T wave abnormalities. Lab test results were reviewed and are all nonactionable including troponin levels. Patient's heart score is 1 and is PERC negative per Wells criteria. On reevaluation, patient's headache resolved with medications as well as chest pain. Patient was discharged home on medications and advised to follow-up with her primary care physician in 3 to 5 days for reevaluation or return to the ED immediately if symptoms get worse. - Differential Diagnosis Costochondritis, CAD; Anxiety; Pneumonia; Muscle strain; PE Critical care attestation.: If time is entered above; I have spent that time in minutes in the direct care of this critically ill patient, excluding procedure time. ED Disposition Clinical Impression: Anxiety as acute reaction to exceptional stress, Acute costochondritis, Acute nonspecific chest pain with low risk of coronary artery disease Tension-type headache, not intractable Qualifiers: Headache chronicity pattern: acute headache Qualified Code(s): G44.209 - Tension-type headache, unspecified, not intractable Disposition: DC-01 TO HOME OR SELFCARE Is pt being admited?: No Does the pt Need Aspirin: No Condition: Stable Instructions: Chest Pain (ED), Costochondritis (ED), Generalized Anxiety Disorder (ED), Acute Headache (ED) Additional Instructions: All lab test results are unremarkable. Chest x-ray shows no acute cardiopulmonary abnormalities or pneumonitis. Therefore take medications with food, drink plenty of fluids and follow-up with your primary care physician in 3 to 5 days for reevaluation. Return to the ED immediately if symptoms get worse. Prescriptions: hydrOXYzine HCL [Atarax] 25 mg PO Q6HR PRN #30 tablet PRN Reason: Anxiety Butalb/Acetamin/Caff 50-325-40 [Fioricet 50-325-40] 1 - 2 tab PO Q6HR PRN #12 tab PRN Reason: Headache Naproxen 500 mg PO Q12H PRN #30 tablet PRN Reason: Pain , Severe (7-10) Referrals: [facility] [Provider Group] - 3-5 Days Forms: Work/School Release Form(ED) Time of Disposition: 21:21 Print Language: IRISH
[2020-06-26 22:18] VITALS: BP 141/85
== END 2020-06-26 22:05 | disposition home or self-care (01) ==
LOC: ED 18:00
DX: G44.209 Tension-type headache, unspecified, not intractable (principal); M94.0 Chondrocostal junction syndrome [Tietze]; F41.1 Generalized anxiety disorder; F43.0 Acute stress reaction; R07.89 Other chest pain; I10 Essential (primary) hypertension; F17.200 Nicotine dependence, unspecified, uncomplicated; Z88.0 Allergy status to penicillin; Z79.899 Other long term (current) drug therapy; Z98.890 Other specified postprocedural states
CPT/HCPCS: 36415; 71045; 80053; 83880; 84484; 85025; 93005

== ENCOUNTER 2020-10-15 12:24 | Emergency (ER) | payer MEDICAID ==
[2020-10-15 12:35] VITALS: BP 134/88
--- NOTE | 2020-10-15 13:27 | Emergency Department Report ---
ED General Adult HPI - General Chief complaint: Headache Stated complaint: HEADACHE/LT ARM PAIN/CHEST PAIN PUI?: No Time Seen by Provider: 10/15/20 12:33 Source: patient Mode of arrival: Ambulatory Limitations: No Limitations - History of Present Illness Initial comments: 30 yo AA comes to ER with left neck/arm/shoulder pain. She works at home from [employer] and today she had acute onset of the pain - this scared her so she came to ER. She denies substernal pain. No nausea. no diaphoresis. No sob. Ambulatory and drove self to ER no chills no fever no covid exposure Seen by [facility] 2 w ago for her usual bp management. She is on cardizem for bp. She takes meds. She had normal echocardiogram. Pt has hx anxiety- no meds for this. no fall or trauma. -: Sudden, hour(s) Consistency: intermittent Improves with: none Worsens with: movement, other (working at [employer]) Associated Symptoms: denies other symptoms Treatments Prior to Arrival: none - Related Data Previous Rx's Medication Instructions Recorded Last Taken Type Ibuprofen [Motrin] 800 mg PO Q8HR PRN #30 tablet 10/15/20 Unknown Rx Allergies Allergy/AdvReac Type Severity Reaction Status Date / Time Penicillins Allergy Hives Verified 10/15/20 12:33 ED Review of Systems ROS: Stated complaint: HEADACHE/LT ARM PAIN/CHEST PAIN Other details as noted in HPI Comment: All other systems reviewed and negative ED Past Medical Hx - Past Medical History Previous Medical History?: Yes Hx Hypertension: Yes Hx Psychiatric Treatment: Yes (Anxiety) Hx Asthma: No - Surgical History Past Surgical History?: Yes Additional Surgical History: x3. D & C - Family History Family history: no significant - Social History Smoking Status: Current Every Day Smoker Substance Use Type: Alcohol - Medications Home Medications: Home Medications Medication Instructions Recorded Confirmed Last Taken Type Ibuprofen [Motrin] 800 mg PO Q8HR PRN #30 tablet 10/15/20 Unknown Rx ED Physical Exam - General Limitations: No Limitations General appearance: alert, in no apparent distress - Head Head exam: Present: atraumatic, normocephalic - Eye Eye exam: Present: normal appearance - ENT ENT exam: Present: mucous membranes moist - Neck Neck exam: Present: normal inspection - Respiratory Respiratory exam: Present: normal lung sounds bilaterally. Absent: respiratory distress - Cardiovascular Cardiovascular Exam: Present: regular rate, normal rhythm. Absent: systolic murmur, diastolic murmur, rubs, gallop - GI/Abdominal GI/Abdominal exam: Present: soft, normal bowel sounds - Extremities Exam Extremities exam: Present: normal inspection - Back Exam Back exam: Present: normal inspection - Neurological Exam Neurological exam: Present: alert, oriented X3 - Psychiatric Psychiatric exam: Present: normal affect, normal mood - Skin Skin exam: Present: warm, dry, intact, normal color. Absent: rash ED Course Vital Signs 10/15/20 12:29 Temperature 99.1 F Pulse Rate 56 L Respiratory 18 Rate Blood Pressure 134/88 O2 Sat by Pulse 97 Oximetry ED Medical Decision Making - EKG Data -: EKG Interpreted by Me EKG shows normal: sinus rhythm Rate: normal - EKG Data When compared to previous EKG there are: no significant change Interpretation: no acute changes - Medical Decision Making 12 lead SR no change on reexam pt updated on ekg and she stated pain was gone she then states she was just anxious pt reassured and pt dc home dc home with dc poc including pcp and cards follow up. she verbalizes understanding of plan of care. Vital Signs 10/15/20 12:29 Temperature 99.1 F Pulse Rate 56 L Respiratory 18 Rate Blood Pressure 134/88 O2 Sat by Pulse 97 Oximetry - Differential Diagnosis ro cardiac etio- anxiety Critical care attestation.: If time is entered above; I have spent that time in minutes in the direct care of this critically ill patient, excluding procedure time. ED Disposition Clinical Impression: Arm pain Disposition: DC-01 TO HOME OR SELFCARE Is pt being admited?: No Does the pt Need Aspirin: No Condition: Stable Additional Instructions: med as ordered today follow up with pcp and or cardiology referral to pcp below warm compresses to neck and shoulder good body mechanics Prescriptions: Ibuprofen [Motrin] 800 mg PO Q8HR PRN #30 tablet PRN Reason: Pain, Moderate (4-6) Referrals: AIRAM EATON MD [Staff Physician] - 3-5 Days Time of Disposition: 13:26
== END 2020-10-15 13:25 | disposition home or self-care (01) ==
LOC: ED 12:24
DX: M79.602 Pain in left arm (principal); I10 Essential (primary) hypertension; F41.9 Anxiety disorder, unspecified; F17.200 Nicotine dependence, unspecified, uncomplicated; Z79.899 Other long term (current) drug therapy; Z88.0 Allergy status to penicillin
CPT/HCPCS: 93005; 99282

== ENCOUNTER 2022-04-10 18:59 | Emergency (ER) | payer MEDICAID ==
[2022-04-10 20:19] VITALS: BP 128/78
--- NOTE | 2022-04-13 10:25 | Electrocardiograph Report ---
[facility] Test Date: 2022-04-10 Test Time: 20:24:47 Pat Name: EVE BARCENAS Department: Room: Gender: F Coat Maker: : 1990 Requested By: ZEKE NAQVI Order Number: [id number] Reading MD: Juan Valencia Measurements Intervals [place] Rate: 106 P: 59 WA: 139 QRS: 37 QRSD: 74 T: 253 QT: 315 QTc: 418 Interpretive Statements Sinus tachycardia Borderline T abnormalities, diffuse leads No previous ECG available for comparison Electronically Signed On 04-13-2022 10:25:20 EDT by Juan Valencia
== END 2022-04-11 04:20 | disposition left against medical advice (07) ==
LOC: ED 18:59
DX: R07.9 Chest pain, unspecified (principal); R42 Dizziness and giddiness; Z53.21 Procedure and treatment not carried out due to patient leaving prior to being seen by health care provider
CPT/HCPCS: 93005